=== PATIENT | male | born 1970 | race Caucasian/White ===

== ENCOUNTER 2021-04-14 23:33 | Emergency (ER) | payer SELFPAY ==
[2021-04-14 23:33] VITALS: BP 200/115; PULSE 91; RESP 16; TEMP 36.4; O2SAT 96; BMI 33.0
--- NOTE | 2021-04-14 23:50 | EDS_ITS ---
HPI History of Present Illness Chief Complaint: Dental Detail of Chief Complaint: Patient has left maxillary and mandibular dental pain for over a week. Onset/Context/Timing Onset: Days Timing: Continuous Current Severity: Severe Maximum Severity: Severe Associated Symptoms Associated Symptoms: None Narrative Narrative: Patient was at his dentist a week ago and prescribed amoxicillin and anti-inflammatories. The pain is not improved. He was advised to come to the ED if his pain was not controlled by his prescribed medications. PFSH PFS Medical History Cholecystectomy planned Home Medications amoxicillin 500 mg PO TID 04/14/21 [History Last Taken Unknown] clindamycin HCl 300 mg PO 4X/DAY #80 capsule 04/14/21 [Rx Last Taken Unknown] hydrocodone-acetaminophen 1 tab PO Q6H PRN PRN 3 Days #10 tablet 04/14/21 [Rx Last Taken Unknown] ibuprofen 600 mg PO TID 04/14/21 [History Last Taken Unknown] Allergy/AdvReac Type Severity Reaction Status Date / Time No Known Allergies Allergy Verified 11/28/14 10:17 Social History Smoking Status: Current every day smoker tobacco type: cigarettes ROS ROS ED Constitutional Constitutional ED: Denies chills or fever(s) Eyes Eyes: Denies change in vision ENT ENT ED: Reports sore throat; Denies ear pain or rhinorrhea Cardiovascular Cardiovascular: Denies chest pain Respiratory/Chest Respiratory/Chest: Denies dyspnea Gastrointestinal Gastrointestinal: Denies abdominal pain Genitourinary Genitourinary ED: Denies dysuria Musculoskeletal Musculoskeletal: Denies myalgias or neck pain Integumentary Denies rash Neurologic Neurologic: Denies headache(s), paresthesias or weakness Psychiatric Psychiatric: Denies depression Endocrine Endocrinology: Denies polyuria EXAM Physical Exam Const Vital Signs: 04/14/21 23:33 Temperature 97.6 F L Temperature Source Temporal Pulse Rate 91 Respiratory Rate 16 Blood Pressure 200/115 H Blood Pressure Mean 143 Pulse Ox 96 Oxygen Delivery Method Room Air Positive well nourished and well developed General Appearance ED: well developed HEENT Reports moist mucous membranes; Denies dry mucous membranes HEENT Narrative: Focal decay left maxillary molars and mandibular molars. No abscess. No trismus. No tongue elevation. Airway intact. Negative for trauma or tenderness Mouth ED: No dry mucous membranes Mouth: No dry mucous membranes Eyes EOMs intact bilaterally Neck no lymphadenopathy and supple Resp normal respiratory effort Neuro oriented x3 and CN's II-XII intact bilaterally Sensorium / Orientation: alert Skin no rashes or lesions noted, no wounds and skin turgor normal MDM MDM MDM Narrative Medical decision making narrative: Patient has dental pain that was not controlled my amoxicillin and anti-inflammatories. He has no active controlled prescriptions. He was given a short course of [place] and he was prescribed clindamycin. Call your dentist in the morning. Discharge Plan Triage Chief Complaint: Dental ED Provider: Chuck Peacock Dx/Rx/DC Orders Clinical Impression: Pain, dental Instructions: ED Dental Pain Prescriptions: New hydrocodone-acetaminophen 5-325 mg tablet 1 tab PO Q6H PRN PRN (Reason: Pain) 3 Days Qty: 10 RF: 0 clindamycin HCl 150 mg capsule 300 mg PO 4X/DAY Qty: 80 RF: 0 No Action amoxicillin 500 mg capsule 500 mg PO TID RF: 0 ibuprofen 600 mg tablet 600 mg PO TID RF: 0 Primary Care Provider: Oscar Cardona Chi Referrals: Oscar Cardona Chi, MD [Primary Care Provider] - Activity Restrictions/Additional Instructions: follow up with your dentist Disposition Disposition: Home, self care
[2021-04-15] MEDS: HYDROcodone Bitartrate/Apap 5/325 Tablet PO (00:14)
[2021-04-15] MEDS: Clindamycin HCl 150 MG Capsule 450 MG PO (00:14)
== END 2021-04-15 00:19 | disposition home or self-care (01) ==
LOC: ED 04-15 00:06
PROVIDERS: Emergency Provider Emergency Medicine
DX: K08.89 Other specified disorders of teeth and supporting structures (principal); F17.210 Nicotine dependence, cigarettes, uncomplicated
CPT/HCPCS: 99283

== ENCOUNTER 2023-02-04 03:06 | Emergency (ER) | payer MEDICAID, SELFPAY ==
[2023-02-04 03:08] VITALS: BP 175/86; PULSE 92; RESP 15; TEMP 36.6; O2SAT 95; BMI 34.6
--- NOTE | 2023-02-04 03:59 | EDS_ITS ---
HPI History of Present Illness Chief Complaint: Rash Narrative Narrative: 52-year-old male presenting with rash on the right arm and the right side of his chest. He states he was out in the son about a week ago. He noticed a rash on the right forearm initially which is spread up his right arm. It is itchy in nature. Its been weeping. He is concerned it could be poison kasandra/poison sumac/poison oak. PFSH PFS Medical History Cholecystectomy planned Home Medications prednisone 10 mg tablet 10 mg PO DAILY #63 tabs 02/04/23 [Rx Last Taken Unknown] Allergy/AdvReac Type Severity Reaction Status Date / Time No Known Allergies Allergy Verified 02/04/23 03:09 Social History Smoking Status: Current every day smoker tobacco type: cigarettes ROS ROS ED Constitutional Constitutional ED: Denies chills, fever(s) or sweats Eyes Eyes: Denies blurry vision or change in vision ENT ENT ED: Denies ear pain or sore throat Cardiovascular Cardiovascular: Denies chest pain, palpitations or racing heartbeat Respiratory/Chest Respiratory/Chest: Denies cough, dyspnea or sputum Gastrointestinal Gastrointestinal: Denies abdominal pain, constipation, diarrhea, nausea or vomiting Genitourinary Genitourinary ED: Denies dysuria, hematuria or urinary frequency Musculoskeletal Musculoskeletal: Denies arthralgias, myalgias or neck pain Integumentary Reports rash; Denies abscess or Abrasions Neurologic Neurologic: Denies headache(s), paresthesias or weakness Psychiatric Psychiatric: Denies anxiety, depression, suicidal ideation or suicidal thoughts Endocrine Endocrinology: Denies polydipsia or polyuria EXAM Physical Exam Const Vital Signs: 02/04/23 03:08 Temperature 97.8 F Temperature Source Oral Pulse Rate 92 Respiratory Rate 15 Blood Pressure 175/86 H Blood Pressure Mean 115 Pulse Ox 95 Oxygen Delivery Method Room Air Positive well nourished Eyes PERRL and EOMs intact bilaterally Resp normal respiratory effort Cardio regular rate and regular rhythm Neuro oriented x3 and CN's II-XII intact bilaterally Psych mental status grossly normal Skin Skin Narrative: Weeping maculopapular rash on the right arm and right side of the chest wall. MDM MDM MDM Narrative Medical decision making narrative: Patient presenting with poison kasandra dermatitis versus poison oak or sumac. Patient started on prednisone in the ED. He will be given a extended taper for home. He is counseled on wound care. Follow-up with primary care to ensure resolution. Return precautions discussed. Impression: 1. Poison kasandra Discharge Plan Triage Chief Complaint: Rash ED Provider: Jin Grullon Dx/Rx/DC Orders Instructions: ED Poison Kasandra or Poison [place] Rash Prescriptions: New prednisone 10 mg tablet 10 mg PO DAILY Qty: 63 0RF Rx Instructions: 60 mg p.o. daily ?3 days, 50 mg p.o. daily ?3 days, 40 mg p.o. daily ?3 days, 30 mg p.o. daily ?3 days, 20 mg p.o. daily ?3 days, 10 mg p.o. daily ?3 days. Primary Care Provider: Care Physician,No Primary Referrals: Yodit Oglesby [facility] [Provider Group] - 3-5 Days Care Physician,No Primary [Primary Care Provider] - Disposition Disposition: Home, Self Care
[2023-02-04] MEDS: predniSONE 20 MG Tablet 60 MG PO (04:01)
== END 2023-02-04 04:07 | disposition home or self-care (01) ==
LOC: ED 04:01
PROVIDERS: Emergency Provider Student in an Organized Health Care Education/Training Program; Visit Provider Student in an Organized Health Care Education/Training Program
DX: L25.5 Unspecified contact dermatitis due to plants, except food (principal); F17.210 Nicotine dependence, cigarettes, uncomplicated
CPT/HCPCS: 99282

== ENCOUNTER 2023-08-10 00:43 | Emergency (ER) | payer MEDICAID, SELFPAY ==
[2023-08-10 00:44] VITALS: BP 198/108; PULSE 90; RESP 16; TEMP 36.6; O2SAT 96; BMI 34.9
--- NOTE | 2023-08-10 00:51 | CT_ITS ---
INDICATION: neck swelling, dental pain EXAMINATION: CT NECK WITH CONTRAST - CT Soft Tissue Neck W/ Contrast Injection TECHNIQUE: Helically acquired images were obtained of the neck following IV contrast. A radiation dose optimization technique was used for this scan. IV Contrast dosage and agent: 100 mL of Isovue-370 RADIATION DOSAGE (If Supplied By Facility): CTDIvol = ( 18.40 ) mGy, DLP = ( 579.26 ) mGycm COMPARISON: No relevant prior comparison study available FINDINGS: NASOPHARYNX: Unremarkable. SUPRAHYOID NECK: Unremarkable oropharynx, oral cavity, parapharyngeal space, and retropharyngeal space. Inflammation seen in the submandibular/sublingual region, left greater than right. Mild thickening of the left aspect of the platysma. No fluid collection. Small lymph nodes are present. INFRAHYOID NECK: Unremarkable larynx, hypopharynx, and supraglottis. THYROID: No focal lesions. SALIVARY GLANDS: Unremarkable. LYMPH NODES: No pathologically enlarged lymph nodes are seen. VASCULAR STRUCTURES: Unremarkable. VISUALIZED PORTIONS OF THE ORBITS, PARANASAL SINUSES, MASTOID AIR CELLS AND SKULL BASE: Unremarkable. ORAL CAVITY: No periapical lucency identified. Multiple dental caries are present. BONES: No acute or suspicious osseous abnormality. Moderate degenerative change throughout the cervical spine. THORACIC INLET: Clear lung apices. CT/Soft Tissue Neck WITH Contrast IMPRESSION: Mild inflammation in the submandibular/sublingual region, left greater than right. No fluid collection. No periapical lucencies. Multiple dental caries. Electronically Signed: Sanya Lay MD at 1:55 EDT ,
[2023-08-10] MEDS: Piperacil/Tazobactam 4.5 GM in 0.9% Normal Saline (100mL MB+) 100 ML IV (01:16)
[2023-08-10 01:23] LABS: Absolute Lymphocyte Count 1.82 X10^3/uL (0.83-4.51); Absolute Neutrophil Count 9.5 X10^3/uL (2.0-7.7); Basophil# 0.03 X10^3/uL; Basophil% 0.2 % (0-1); Eosinophil# 0.06 X10^3/uL; Eosinophils% 0.5 % (0-5); Hematocrit 45.9 % (40-54); Hemoglobin 15.5 g/dL (13.0-16.5); Lymphocyte # 1.82 X10^3/ul (0.83-4.51); Lymphocyte % 14.1 % (19-41); Mean Corp Hgb Conc 33.8 g/dL (32-36); Mean Corpuscular Hgb 31.4 pg (27.0-32.0); Mean Corpuscular Volume 93.1 fL (80-94); Mean Platelet Vol. 8.3 fl (6.2-12.0); Monocyte% 11.6 % (0-10); NRBC Flagged by Analyzer 0 % (0-5); Neutrophil # 9.47 X10^3/uL (2.7-7.7); Neutrophil % 73.2 % (47-70); Platelet Count 215 K/mm3 (150-450); RBC Distribution Width CV 13.1 % (11.6-14.6); RBC Distribution Width SD 44.5 fl (35.1-43.9); Red Blood Count 4.93 M/mm3 (4.6-6.2); White Blood Count 12.9 K/mm3 (4.4-11.0)
--- NOTE | 2023-08-10 02:14 | EDS_ITS ---
HPI History of Present Illness Chief Complaint: Dental Detail of Chief Complaint: Dental pain and facial swelling Informant: patient Narrative Narrative: Patient presents to the emergency department complaint of tooth pain that started 3 days ago left lower jaw. Over the last couple days has had increased swelling to his neck and floor of the mouth. He denies fevers or chills or sweats. He denies difficulty swallowing. Patient tells me he has no medical history. PFSH PFS Medical History Cholecystectomy planned Home Medications NK 08/10/23 [History Last Taken Unknown] Allergy/AdvReac Type Severity Reaction Status Date / Time No Known Allergies Allergy Verified 02/04/23 03:09 Social History Smoking Status: Current every day smoker tobacco type: cigarettes ROS ROS ED Review of Systems ROS Unobtainable: other Constitutional Constitutional ED: Reports lethargy; Denies chills, fever(s), sweats or weight loss Eyes Eyes: Denies blurry vision, change in vision or diplopia ENT ENT ED: Reports sore throat and other Details: Dental pain ; Denies rhinorrhea Cardiovascular Cardiovascular: Denies chest pain, orthopnea or racing heartbeat Respiratory/Chest Respiratory/Chest: Denies cough, dyspnea, dyspnea on exertion, orthopnea or sputum Gastrointestinal Gastrointestinal: Denies abdominal pain, diarrhea, nausea or vomiting Genitourinary Genitourinary ED: Denies dysuria, hematuria or urinary frequency Musculoskeletal Musculoskeletal: Denies arthralgias, back pain, myalgias or neck pain Integumentary Denies abscess, Abrasions or rash Neurologic Neurologic: Denies headache(s) or weakness Psychiatric Psychiatric: Denies anxiety, depression or suicidal thoughts Endocrine Endocrinology: Denies polydipsia, polyphagia or polyuria Hematologic/Lymphatic Hematologic/Lymphatic: Denies easy bleeding, easy bruising or lymphadenopathy Allergic/Immunologic Allergic/Immunologic ED: Denies mouth swelling, tongue swelling or urticaria EXAM Physical Exam Const Vital Signs: 08/10/23 00:44 08/10/23 04:00 08/10/23 03:00 Temperature 97.9 F Temperature Source Temporal Pulse Rate 90 83 81 Respiratory Rate 16 17 19 H Blood Pressure 198/108 H 189/105 H Blood Pressure Mean 138 133 Pulse Ox 96 96 95 Oxygen Delivery Method Room Air Room Air Room Air Positive well nourished and well developed General Appearance ED: well developed and NAD HEENT Reports TM's clear and moist mucous membranes HEENT Narrative: Patient has diffuse swelling to the floor of the mouth. Patient has tenderness along the left lower gingiva diffusely without any abscess noted or fluctuance. Multiple caries teeth. Patient has submental swelling and tenderness with some faint erythema. Uvula midline with no trismus. normocephalic and atraumatic; Negative for trauma or tenderness Tympanic Membrane ED: Yes TM's clear Eyes PERRL and EOMs intact bilaterally General Eye ED: Negative for pale conjunctiva or scleral icterus Neck no lymphadenopathy, supple and no JVD General: Negative for tenderness Chest Wall inspection of chest normal and palpation of chest normal Chest: Negative for tenderness Resp normal respiratory effort and clear to auscultation bilaterally Effort and Inspection: Negative for respiratory distress or pain with movement Auscultation: Negative for rhonchi, wheezes or diminished lung sounds Cardio regular rate, regular rhythm, S1 normal heart sound, S2 normal heart sound and no murmurs Peripheral Pulses: pulses 2+ throughout GI normal to inspection, nondistended, normoactive bowel sounds, soft to palpation, non-tender, non-distended and no masses Back/Spine no CVA tenderness and no thoracic nor lumbar tenderness Extremity normal to inspection General Extremety ED: Negative for edema General Extremity: Negative for edema Neuro oriented x3, CN's II-XII intact bilaterally, no sensory deficits noted and gait normal Sensorium / Orientation: awake, alert, oriented to person, oriented to place and oriented to time Motor Exam: strength 5/5 throughout and strength abnormal Psych mental status grossly normal Skin no rashes or lesions noted and no wounds MDM MDM MDM Narrative Medical decision making narrative: Patient presents with dental pain and mandible and submental swelling with concern for Cady's angina. IV line established. Patient was started on Zosyn IV. CBC with differential obtained showed an elevated white count of 12.9. CT scan with IV contrast of soft tissue neck obtained showed soft tissue swelling and inflammation without evidence of fluid collection or drainable abscess. CBC with differential obtained showed a white count 12.9 with hemoglobin of 15 and platelet count of 215. Chemistries unremarkable. Lactate was normal at 1.2. Discussed case with our hospitalist who asked that I discussed with oral maxillofacial surgeon if available. I attempted multiple times to contact Dr. Gu unsuccessfully. I was then asked to transfer patient to facility that would have oral maxillofacial availability. We attempted multiple hospitals including [facility] in [facility] as well as [facility] and there were no beds available at these facilities. We contacted [facility] in [place] who I was told had bed availability and discussed case with Dr. Lomas who accepted transfer of patient to their facility. Patient reassessment at 5:30 AM. Patient resting comfortably. He has no respiratory distress. Awaiting bed at [facility]. Lab Data Attestation: I reviewed the patient's lab results. Labs: Laboratory Results - last 24 hr 08/10/23 01:15 WBC 12.9 H RBC 4.93 Hgb 15.5 Hct 45.9 MCV 93.1 MCH 31.4 MCHC 33.8 RDW Std Deviation 44.5 H RDW Coeff of Tony 13.1 Plt Count 215 MPV 8.3 Immature Gran % (Auto) 0.400 Neut % (Auto) 73.2 H Lymph % (Auto) 14.1 L [place] % (Auto) 11.6 H Eos % (Auto) 0.5 Baso % (Auto) 0.2 Absolute Neuts (auto) 9.5 H Absolute Lymphs (auto) 1.82 Nucleated RBC % 0 Sodium 141 Potassium 3.7 Chloride 108 H Carbon Dioxide 27.0 Anion Gap 6 BUN 13 Creatinine 1.29 Estim Creat Clear Calc 72.69 Est GFR (MDRD) Af Amer 75 Est GFR (MDRD) Non-Af 62 BUN/Creatinine Ratio 10.1 Glucose 131 H Lactic Acid 1.2 Calcium 8.6 Radiography Diagnostic Testing: Clinical Impression(s) from Imaging Studies Soft Tissue Neck CT 08/10/23 00:51 IMPRESSION: Mild inflammation in the submandibular/sublingual region, left greater than right. No fluid collection. No periapical lucencies. Multiple dental caries. Electronically Signed: Sanya Lay MD at 1:55 EDT , Discharge Plan Triage Chief Complaint: Dental ED Provider: Ungur,Remus Dx/Rx/DC Orders Clinical Impression: Pain, dental, Angina, Jose Prescriptions: No Action NK Primary Care Provider: Care Physician,No Primary Referrals: Care Physician,No Primary [Primary Care Provider] - Disposition Disposition: DC/Tx to Another Type of HCF
[2023-08-10 02:32] LABS: Lactic Acid 1.2 mmol/L (0.4-1.9)
--- NOTE | 2023-08-10 02:38 | PCM.HP.STD ---
HPI - General HPI Narrative PATSY WILSON, is a 53 M who presents [facility] Medical History Cholecystectomy planned Home Medications prednisone 10 mg tablet 10 mg PO DAILY #63 tabs 02/04/23 [Rx Last Taken Unknown] Allergy/AdvReac Type Severity Reaction Status Date / Time No Known Allergies Allergy Verified 02/04/23 03:09 Social History Smoking Status: Current every day smoker tobacco type: cigarettes Vital Signs Vital Signs Vital Signs: 08/10/23 00:44 Temperature 97.9 F Temperature Source Temporal Pulse Rate 90 Respiratory Rate 16 Blood Pressure 198/108 H Blood Pressure Mean 138 Pulse Ox 96 Oxygen Delivery Method Room Air Weight Weight: 117.027 kg Body Mass Index (BMI) 34.9 Results Lab / Micro Data 08/10/23 01:15 08/10/23 01:15 Labs: Laboratory Results - last 24 hr 08/10/23 01:15: WBC 12.9 H, RBC 4.93, Hgb 15.5, Hct 45.9, MCV 93.1, MCH 31.4, MCHC 33.8, RDW Std Deviation 44.5 H, RDW Coeff of Tony 13.1, Plt Count 215, MPV 8.3, Immature Gran % (Auto) 0.400, Neut % (Auto) 73.2 H, Lymph % (Auto) 14.1 L, [place] % (Auto) 11.6 H, Eos % (Auto) 0.5, Baso % (Auto) 0.2, Absolute Neuts (auto) 9.5 H, Absolute Lymphs (auto) 1.82, Nucleated RBC % 0, Lactic Acid 1.2 Radiology Impression Soft Tissue Neck CT 08/10/23 00:51 IMPRESSION: Mild inflammation in the submandibular/sublingual region, left greater than right. No fluid collection. No periapical lucencies. Multiple dental caries. Electronically Signed: Sanya Lay MD at 1:55 EDT Reading Location ID and State: [facility] / [place] Tel , Service support ,
[2023-08-10 02:51] LABS: BUN 13 mg/dL (7-18); Glucose 131 mg/dL (74-106)
[2023-08-10 02:52] LABS: Anion Gap 6 (5-15); BUN/Creat Ratio 10.1 RATIO (10-20); Calcium,Total 8.6 mg/dL (8.5-10.1); Chloride 108 mmol/L (98-107); Creatinine, Serum 1.29 mg/dL (0.70-1.30); EST Glomerular Filtration Rate 62 mL/min (>60); Est Glom Filt Rate - Afr Amer 75 mL/min (>60); Estimated Creatinine Clearance 72.69 ml/min; Potassium 3.7 mmol/L (3.5-5.1); Sodium Level 141 mmol/L (136-145)
[2023-08-10 03:00] VITALS: PULSE 81; RESP 19; O2SAT 95
[2023-08-10 04:00] VITALS: BP 189/105; PULSE 83; RESP 17; O2SAT 96
[2023-08-10 05:00] VITALS: BP 177/76; PULSE 75; RESP 16; O2SAT 97
[2023-08-10 06:00] VITALS: BP 178/78; PULSE 80; RESP 16; O2SAT 95
[2023-08-10 06:55] VITALS: BP 178/75; PULSE 80; RESP 19; O2SAT 95
== END 2023-08-10 08:49 | disposition other institution (70) ==
PROVIDERS: Emergency Provider Emergency Medicine; Visit Provider Emergency Medicine
DX: K12.2 Cellulitis and abscess of mouth (principal); K08.89 Other specified disorders of teeth and supporting structures; F17.210 Nicotine dependence, cigarettes, uncomplicated
CPT/HCPCS: 70491; 80048; 83605; 85025; 96365; 99284; Q9967; A4216

== ENCOUNTER 2024-10-01 23:12 | Emergency (ER) | payer SELFPAY ==
[2024-10-01 23:12] VITALS: BP 191/105; PULSE 88; RESP 17; TEMP 36.8; O2SAT 98; BMI 33.7
--- NOTE | 2024-10-01 23:37 | EX.ED.DYSGE1 ---
HPI History of Present Illness Chief Complaint: Edema Informant: patient Narrative Narrative: Patient is a 54-year-old male who does not follow with a family doctor and states he has no medical history. He reports that he was working on his car yesterday and noticed afterwards that he was having some irritation and itching around his eyes. He states that today the redness and swelling progressed around the eyes and also moved to his forehead nose chin and cheeks. He states he noticed some irritation across his neck and arms as well. He denies any difficulty breathing or swallowing. He denies any known new exposure. He states no one else at home has the rash. However as his symptoms have worsened he presents for evaluation. [facility] Medical History Cholecystectomy planned Home Medications ?Medication ?Instructions ?Recorded ?Last Taken ?Type multivitamin (Daily Multi-Vitamin 1 tab PO DAILY 10/01/24 Unknown History tablet) omega 3-rfw-doa-fish oil 60 mg-90 1 cap PO DAILY 10/01/24 Unknown History mg-500 mg capsule (Fish Oil) prednisone 10 mg tablet 10 mg PO DAILY #48 TABLETS 10/01/24 Unknown Rx sildenafil 50 mg tablet (Viagra) 50 mg PO DAILY PRN sexual activity 10/01/24 Unknown Rx #14 tabs Allergy/AdvReac Type Severity Reaction Status Date / Time No Known Allergies Allergy Verified 10/01/24 23:13 Social History Smoking Status: Current every day smoker tobacco type: cigarettes ROS ROS ED Constitutional Constitutional ED: Denies chills or fever(s) Eyes Eyes: Denies blurry vision, change in vision or diplopia ENT ENT ED: Denies sore throat Cardiovascular Cardiovascular: Denies chest pain Respiratory/Chest Respiratory/Chest: Denies cough or dyspnea Gastrointestinal Gastrointestinal: Denies abdominal pain, diarrhea, nausea or vomiting Genitourinary Genitourinary ED: Denies dysuria Musculoskeletal Musculoskeletal: Denies myalgias Integumentary Reports rash Neurologic Neurologic: Denies headache(s) Hematologic/Lymphatic Hematologic/Lymphatic: Denies easy bleeding or easy bruising Allergic/Immunologic Allergic/Immunologic ED: Denies mouth swelling or tongue swelling EXAM Physical Exam Const Vital Signs: 10/01/24 23:12 10/01/24 23:47 Temperature 98.3 F Temperature Source Oral Pulse Rate 88 73 Respiratory Rate 17 18 Blood Pressure 191/105 H Blood Pressure Mean 133 Pulse Ox 98 94 Oxygen Delivery Method Room Air Positive well nourished, well developed and obese General Appearance ED: well developed Nutritional Appearance: obese HEENT HEENT Narrative: No tongue or lip swelling no oral lesions no airway edema or compromise Patient does have erythema across the forehead nose chin and cheeks with erythema and allergic shiners around the bilateral orbits consistent with allergic reaction Eyes PERRL and EOMs intact bilaterally General Eye ED: Negative for scleral icterus Neck supple Resp normal respiratory effort and clear to auscultation bilaterally Cardio regular rate and regular rhythm Extremity normal to inspection Neuro oriented x3, CN's II-XII intact bilaterally and no sensory deficits noted Sensorium / Orientation: alert Motor Exam: strength 5/5 throughout Psych mental status grossly normal Skin Skin Narrative: Erythema/rash across the face as documented above with slight extension into the neck and the bilateral antecubital spaces. No involvement of the palms or soles. MDM MDM MDM Narrative Medical decision making narrative: Patient presented to the ER hypertensive but otherwise with stable vitals. He reported no known exposures in the last 24 hours but was working on his car and he states there was multiple chemicals he could have come in contact with although he states they are not new. His history and exam is most consistent with contact dermatitis as it is delayed hypersensitivity reaction and symptoms started yesterday and worsened throughout the day. His exam does not suggest an infectious process such as cellulitis or abscess or shingles. He does not have angioedema or airway compromise/respiratory distress. I discussed with patient I feel he would benefit from IV Solu-Medrol Benadryl and Pepcid. Patient states he does not want to stay in the hospital and would prefer oral medication. Therefore he was given these medications by mouth and prednisone taper was prescribed for home. Of note the patient did admit that he has difficulty with erectile dysfunction but does not have a family doctor and was requesting Viagra. Secondary to this I will provide a short course but informed him he will need to follow-up with a family doctor if he wants to continue any type of outpatient therapy for this History & Record Review Discussion w/independent historian: Patient Discharge Plan Triage Chief Complaint: Edema ED Provider: Jhonny Landeros Dx/Rx/DC Orders Clinical Impression: Allergic reaction, Hypertension, Erectile dysfunction Instructions: ED General Allergic Reactions Prescriptions: New prednisone 10 mg tablet 10 mg PO DAILY Qty: 48 0RF Rx Instructions: 6 po qd x 3 days, 4 po qd x 3 days, 2 po qd x 3 days, 1 po qd x 3 days sildenafil [Viagra] 50 mg tablet 50 mg PO DAILY PRN (Reason: sexual activity) Qty: 14 0RF Rx Instructions: administer 30 minutes to 4 hours before activity No Action multivitamin [Daily Multi-Vitamin] Tablet 1 tab PO DAILY omega 2-eah-ips-fish oil [Fish Oil] 60-90-500 mg capsule 1 cap PO DAILY Primary Care Provider: Care Physician,No Primary Referrals: Edil Whitley MD [Med Staff - Active Staff] - Care Physician,No Primary [Primary Care Provider] - Activity Restrictions/Additional Instructions: Please take the prednisone as directed to resolve your allergic reaction. If you develop difficulty breathing or swallowing or have any further concerns please return to the hospital for repeat evaluation Print Language: Polish Disposition Disposition: Home, Self Care Discharge Date/Time: 10/01/24 23:47
[2024-10-01] MEDS: Famotidine 20 MG Tablet 40 MG PO (23:46)
[2024-10-01] MEDS: predniSONE 20 MG Tablet 60 MG PO (23:46)
[2024-10-01] MEDS: DiphenhydrAMINE 25 MG Capsule 50 MG PO (23:46)
[2024-10-01 23:47] VITALS: PULSE 73; RESP 18; O2SAT 94
== END 2024-10-01 23:47 | disposition home or self-care (01) ==
LOC: ED 23:46
PROVIDERS: Emergency Provider Emergency Medicine; Visit Provider Emergency Medicine
DX: T78.40XA Allergy, unspecified, initial encounter (principal); I10 Essential (primary) hypertension; E66.9 Obesity, unspecified; N52.9 Male erectile dysfunction, unspecified; F17.210 Nicotine dependence, cigarettes, uncomplicated
CPT/HCPCS: 99283

== ENCOUNTER → 2024-10-02 | Outpatient (CLI) | payer SELFPAY ==
--- NOTE | 2024-10-02 18:50 | RAD_ITS ---
EXAM: XR CERVICAL SPINE, 4 OR 5 VIEWS CLINICAL INDICATION: M54.2 pain. Status post fall. TECHNIQUE: Frontal, lateral and bilateral oblique views of the cervical spine. COMPARISON: CT neck, 08/10/2023 FINDINGS: VERTEBRAE: Straightening of expected cervical lordosis may be in part positional or secondary to spasm. Multilevel facet, uncovertebral joint, and endplate osteophytosis. Preserved vertebral body height. No acute fracture. No spondylolisthesis. DISC SPACES: Multilevel intervertebral disc height loss. Osseous encroachment of multiple neural foramina resulting in multilevel stenosis. SOFT TISSUES: No significant abnormality. No prevertebral soft tissue widening. VASCULATURE: Vascular calcifications. LUNG APICES: Clear. RAD/Cerv Spine 4 or 5 Views IMPRESSION: 1. Straightening of expected cervical lordosis may be in part positional or secondary to spasm. 2. Degenerative changes. No definite acute osseous abnormality. Findings correlate with the prior CT. Electronically Signed: Samy Small DO at 20:28 EST ,
== END | disposition home or self-care (01) ==
PROVIDERS: Visit Provider Chiropractor
DX: M54.2 Cervicalgia (principal)
CPT/HCPCS: 72050

== ENCOUNTER 2025-04-15 11:51 | Emergency (ER) | payer MEDICAID, SELFPAY ==
[2025-04-15 11:51] VITALS: BP 182/103; PULSE 85; RESP 16; TEMP 35.6; O2SAT 96; BMI 32.6
--- NOTE | 2025-04-15 12:12 | EDS_ITS ---
HPI History of Present Illness Chief Complaint: Dental Detail of Chief Complaint: Dental pain tooth #27 and possibly 28 Informant: patient Onset/Context/Timing Onset: Yesterday Context: Sudden Onset Timing: Continuous Quality: Pain Location: Tooth #2728 Current Severity: Mild (Here after he put garlic in his mouth) Maximum Severity: Moderate Worsened by: Air Associated Symptoms Assocated Symptom - Dental: Negative for fever, jaw swelling, face swelling, cold sensitivity or hot sensitivity Narrative Narrative: Patient is a 55-year-old male who presents with abrupt onset of dental pain. He believes he broke tooth #27 and possibly 28. He has severe pain. He has no medical problems. 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 He does not have a primary care physician. He is a smoker. He denies fever, chills night sweats. He denies change in voice or difficulty swallowing. He denies history of medic fever, heart murmur, SBE or being immune suppressed. Prior similar symptoms: No Recent Illness/Hospitalization: No PFSH PFSH Medical History Cholecystectomy planned Home Medications ?Medication ?Instructions ?Recorded ?Last Taken ?Type multivitamin (Daily Multi-Vitamin 1 tab PO DAILY 10/01 Unknown History tablet) omega 0-scf-kbr-fish oil 60 mg-90 1 cap PO DAILY 10/01 Unknown History mg-500 mg capsule (Fish Oil) prednisone 10 mg tablet 10 mg PO DAILY #48 TABLETS 1 12/02/23 Unknown Rx sildenafil 50 mg tablet (Viagra) 50 mg PO DAILY PRN se xual activity 10/01/24 Unknown Rx #14 tabs hydrocodone-acetaminophen 5-325mg 1 tab PO Q6H PRN PRN Pain 3 days 04/15/25 Unknown Rx 5mg-325mg #10 TABLETS Allergy/AdvReac Type Severity Reaction Status Date / Time No Known Allergies Allergy Verified 04/15/25 11:51 Social History Smoking Status: Current every day smoker tobacco type: cigarettes ROS ROS ED Constitutional Constitutional ED: Denies chills, fever(s), subjective or sweats Eyes Eyes: Denies blurry vision or change in vision ENT ENT ED: Reports other Details: HPI narrative ; Denies ear pain, rhinorrhea or sore throat Cardiovascular Cardiovascular: Denies chest pain or palpitations Respiratory/Chest Respiratory/Chest: Denies cough or dyspnea Gastrointestinal Gastrointestinal: Denies nausea or vomiting EXAM Physical Exam Const Vital Signs: 04/15/25 11:51 Temperature 96.1 F L Temperature Source Temporal Pulse Rate 85 Respiratory Rate 16 Blood Pressure 182/103 H Blood Pressure Mean 129 Pulse Ox 96 Oxygen Delivery Method Room Air Positive well nourished and well developed Constitutional Narrative: BMI is 32.7 General Appearance ED: well developed HEENT Reports TM's clear HEENT Narrative: There is no trismus. Negative for trauma or tenderness Face and Sinus: sinuses nontender Tympanic Membrane ED: Yes TM's clear Mouth ED: Yes lips normal, Yes tongue normal, Yes salivary gland normal, No mouth trauma and Yes oral and palatal mucosa abnormal Mouth: lips normal, tongue normal, salivary gland normal, No mouth trauma and oral and palatal mucosa abnormal Teeth and Gingiva: abnormal tooth and associated gingiva, gingiva abnormal, poor dentition and teeth discoloration Throat: posterior oropharynx normal Eyes PERRL and EOMs intact bilaterally Neck no lymphadenopathy, supple and no JVD Resp normal respiratory effort, no retractions and clear to auscultation bilaterally Cardio regular rate, regular rhythm, S1 normal heart sound, S2 normal heart sound and no murmurs Neuro oriented x3 and CN's II-XII intact bilaterally Sensorium / Orientation: alert Psych mental status grossly normal Skin no rashes or lesions noted MDM MDM MDM Narrative Medical decision making narrative: Patient with elevated blood pressure most likely due to pain since his most recent physical revealed no abnormality. Patient was treated with oral opiate analgesia and NSAIDs. He states his will drive him home. He needs dental x-rays which we do not have capability of performing. He does not have a dentist. He was referred to dentist and given the dental sheet. Also recommend that he follow-up at the [facility] to have blood pressure rechecked in 1 week. This was not treated because he had a normal blood pressure recently and has no history of any medical problems. Furthermore, he is asymptomatic. Discharge Plan Triage Chief Complaint: Dental ED Provider: Porfirio Perez Dx/Rx/DC Orders Clinical Impression: Pain, dental, Gingivitis, Periodontitis, Elevated blood-pressure reading without diagnosis of hypertension Instructions: ED Dental Pain, ED Hypertension, To Be Confirmed Prescriptions: New hydrocodone-acetaminophen 5-325 mg tablet 1 tab PO Q6H PRN PRN (Reason: Pain) 3 Days Qty: 10 0RF No Action multivitamin [Daily Multi-Vitamin] Tablet 1 tab PO DAILY omega 1-vxr-wdx-fish oil [Fish Oil] 60-90-500 mg capsule 1 cap PO DAILY prednisone 10 mg tablet 10 mg PO DAILY Qty: 48 0RF Rx Instructions: 6 po qd x 3 days, 4 po qd x 3 days, 2 po qd x 3 days, 1 po qd x 3 days sildenafil [Viagra] 50 mg tablet 50 mg PO DAILY PRN (Reason: sexual activity) Qty: 14 0RF Rx Instructions: administer 30 minutes to 4 hours before activity Primary Care Provider: Care Physician,No Primary Referrals: Yodit Oglesby [facility] [Provider Group] - 1-2 Weeks Care Physician,No Primary [Primary Care Provider] - Print Language: Kiswahili Disposition Disposition: Home, Self Care
--- OUTSIDE RECORDS SUMMARY | 2025-04-15 12:24 | XMS RPT_ITS | CCD ---
Author Organization [facility] Care Team Providers Care Chemical Dependency Nurse Name Role Phone KEVIN GAMBOA Admitting Unavailable KEVIN GAMBOA Attending Unavailable KEVIN GAMBOA Consulting Unavailable BRYANNA SAHU Admitting Unavailable BRYANNA SAHU Attending Unavailable NONE, NONE Primary Care Unavailable Saji Turner [phone] Consulting Unavailable NONE, NONE Consulting Unavailable BRYANNA SAHU Consulting Unavailable Bryanna Sahu Attending Unavailable Care Physician, No Primary Primary Care Unava ilable Jhonny Landeros Attending Unavailable Care Physician, No Primary Primary Care Unava ilable Medications Current Medications Medication Drug Class(es) Dates Sig (Normalized) Sig (Original) [place] (Nk) (1 source) Start: 08-10-2023 [place] (Nk) A ctive August 10, 2023 12:00am Completed/Discontinued Medications Medication Drug Class(es) Dates Sig (Normalized) Sig (Original) predniSONE 10 mg oral tablet (2 sources) Start: 02-04-2023 End: 08-10-2023 take 60 mg by mouth once daily, then take 50 mg by mouth once daily, then take 40 mg by mouth once daily, then take 30 mg by mouth once daily, then take 20 mg by mouth once daily, then take 10 mg by mouth once daily Prednisone Discontinued 10 MG PO DAILY 63 February 04, 2023 12:00am August 10, 2023 2:49am 60 mg p.o. daily 3 days, 50 mg p.o. daily 3 days, 40 mg p.o. daily 3 days, 30 mg p.o. daily 3 days, 20 mg p.o. daily 3 days, 10 mg p.o. daily 3 days. Problems Problem Classification Problem Date Documented Da te Episodic/Chronic Diseases of mouth; excluding dental (1 source) Jose's angina; Translations: [Cellulitis and abscess of mouth] 08-10-2023 Episodic Disorders of teeth and jaw (3 sources) Toothache; Translations: [Other specified disorders of teeth and supporting structures] 04-14-2021 Episodic Other skin disorders (1 source) Rash and other nonspecific skin eruption; Translations: [Rash and other nonspecific skin eruption] Onset: 11-04-2024 Episodic Residual codes; unclassified (2 sources) Decreased libido; Translations: [DECREASED LIBIDO] Onset: 09-28-2019 Episodic Spondylosis; intervertebral disc disorders; other back problems (3 sources) Cervicalgia; Translations: [CERVICALGIA] Onset: 07-13-2019 Episodic Results Test Name Value Interpretation Reference Range Facility Cerv Spine 4 or 5 Viewson Cerv Spine 4 or 5 Views [facility] Imaging Services [address] [place] [address] [id number] Cerv Spine 4 or 5 Views MR#: [id number] Acct: [id number] Name: PATSY WILSON Rep #: [id number] : 1970 M 54 From: Samy salas DO PCP: Care Physician,No Primary Status: REG CLI Study: Cerv Spine 4 or 5 Views Date of Exam: 10/02/24 Exam# [id number] Ordering Dr: Bryanna Sahu [id number] EXAM: XR CERVICAL SPINE, 4 OR 5 VIEWS CLINICAL INDICATION: M54.2 pain. Status post fall. TECHNIQUE: Frontal, lateral and bilateral oblique views of the cervical spine. COMPARISON: CT neck, 08/10/2023 FINDINGS: VERTEBRAE: Straightening of expected cervical lordosis may be in part positional or secondary to spasm. Multilevel facet, uncovertebral joint, and endplate osteophytosis. Preserved vertebral body height. No acute fracture. No spondylolisthesis. DISC SPACES: Multilevel intervertebral disc height loss. Osseous encroachment of multiple neural foramina resulting in multilevel stenosis. SOFT TISSUES: No significant abnormality. No prevertebral soft tissue widening. VASCULATURE: Vascular calcifications. LUNG APICES: Clear. RAD/Cerv Spine 4 or 5 Views IMPRESSION: 1. Straightening of expected cervical lordosis may be in part positional or secondary to spasm. 2. Degenerative changes. No definite acute osseous abnormality. Findings correlate with the prior CT. Electronically Signed: Samy Small DO at 20:28 EST , CC: JC Sahu; No Primary Care Physician Web Consultant: Signed Normal [facility] Emergency Department Summary on 10-01-2024 Emergency Department Summary [facility] Medical Records Department [address] [place] [address] Emergency Department Summary 10/01/24 MR#: [id number] Acct: [id number] Name: PATSY WILSON Rep #: [id number] : 1970 54 From: Jhonny Landeros DO PCP: Care Physician,No Primary Status:DEP ER Location: ED HPI History of Present Illness Chief Complaint: Edema Informant: patient Narrative Narrative: Patient is a 54-year-old male who does not follow with a family doctor and states he has no medical history. He reports that he was working on his car yesterday and noticed afterwards that he was having some irritation and itching around his eyes. He states that today the redness and swelling progressed around the eyes and also moved to his forehead nose chin and cheeks. He states he noticed some irritation across his neck and arms as well. He denies any difficulty breathing or swallowing. He denies any known new exposure. He states no one else at home has the rash. However as his symptoms have worsened he presents for evaluation. [facility] Medical History Cholecystectomy planned Home Medications ???Medication ???Instructions ???Recorded ???Last Taken ???Type multivitamin (Daily Multi-Vitamin 1 tab PO DAILY 10/01/24 Unknown History tablet) omega 7-mkz-yzo-fish oil 60 mg-90 1 cap PO DAILY 10/01/24 Unknown History mg-500 mg capsule (Fish Oil) prednisone 10 mg tablet 10 mg PO DAILY #48 TABLETS 10/01/24 Unknown Rx sildenafil 50 mg tablet (Viagra) 50 mg PO DAILY PRN sexual activity 10/01/24 Unknown Rx #14 tabs Allergy/AdvReac Type Severity Reaction Status Date / Time No Known Allergies Allergy Verified 10/01/24 23:13 Social History Smoking Status: Current every day smoker tobacco type: cigarettes ROS ROS ED Constitutional Constitutional ED: Denies chills or fever(s) Eyes Eyes: Denies blurry vision, change in vision or diplopia ENT ENT ED: Denies sore throat Cardiovascular Cardiovascular: Denies chest pain Respiratory/Chest Respiratory/Chest: Denies cough or dyspnea Gastrointestinal Gastrointestinal: Denies abdominal pain, diarrhea, nausea or vomiting Genitourinary Genitourinary ED: Denies dysuria Musculoskeletal Musculoskeletal: Denies myalgias Integumentary Reports rash Neurologic Neurologic: Denies headache(s) Hematologic/Lymphatic Hematologic/Lymphatic : Denies easy bleeding or easy bruising Allergic/Immunologic Allergic/Immunologic ED: Denies mouth swelling or tongue swelling EXAM Physical Exam Const Vital Signs: 10/01/24 23:12 10/01/24 23:47 Temperature 98.3 F Temperature Source Oral Pulse Rate 88 73 Respiratory Rate 17 18 Blood Pressure 191/105 H Blood Pressure Mean 133 Pulse Ox 98 94 Oxygen Delivery Method Room Air Positive well nourished, well developed and obese General Appearance ED: well developed Nutritional Appearance: obese HEENT HEENT Narrative: No tongue or lip swelling no oral lesions no airway edema or compromise Patient does have erythema across the forehead nose chin and cheeks with erythema and allergic shiners around the bilateral orbits consistent with allergic reaction Eyes PERRL and EOMs intact bilaterally General Eye ED: Negative for scleral icterus Neck supple Resp normal respiratory effort and clear to auscultation bilaterally Cardio regular rate and regular rhythm Extremity normal to inspection Neuro oriented x3, CN's II-XII intact bilaterally and no sensory deficits noted Sensorium / Orientation: alert Motor Exam: strength 5/5 throughout Psych mental status grossly normal Skin Skin Narrative: Erythema/rash across the face as documented above with slight extension into the neck and the bilateral antecubital spaces. No involvement of the palms or soles. MDM MDM MDM Narrative Medical decision making narrative: Patient presented to the ER hypertensive but otherwise with stable vitals. He reported no known exposures in the last 24 hours but was working on his car and he states there was multiple chemicals he could have come in contact with although he states they are not new. His history and exam is most consistent with contact dermatitis as it is delayed hypersensitivity reaction and symptoms started yesterday and worsened throughout the day. His exam does not suggest an infectious process such as cellulitis or abscess or shingles. He does not have angioedema or airway compromise/respirator y distress. I discussed with patient I feel he would benefit from IV Solu- Medrol Benadryl and Pepcid. Patient states he does not want to stay in the hospital and would prefer oral medication. Therefore he was given these medications by mouth an (more content not included)... Normal [facility] Absolute lymphocyte countOrd ered By: Angela Eduardo on 08-10-2023 Lymphocytes Auto (Unsp spec) [#/Vol] 1.82 10*3/uL 0.83-4.51 [facility] Basophil percentageOrdered B y: Ignacia Eduardo on 08-10-2023 Basophils/100 WBC (Bld) 0.2 % 0-1 [facility] Chloride [Moles/Vol] 108 mmol/L 98-107 [facility] Eosinophils/100 WBC (Bld) 0.5 % 0-5 [facility] Glucose [Mass/Vol] 131 mg/dL 74-106 [facility] Comment on above: Fasting Glucose resu lt greater than or equal to 126 mg/dL suggests DIABETES MELLITUS per A.D.A. criteria. Lactate [Moles/Vol] 1.2 mmol/L 0.4-2.0 [facility] Neutrophils (Bld) [#/Vol] 9.5 10*3/uL 2.0-7.7 [facility] Neutrophils/100 WBC (Bld) 73.2 % 47-70 [facility] Potassium [Moles/Vol] 3.7 mmol/L 3.5-5.1 [facility] Sodium [Moles/Vol] 141 mmol/L 136-145 [facility] WBC (Bld) [#/Vol] 12.9 10*3/uL 4.4-11.0 [facility] Blood erythrocytes count (nu mber/volume)Ordered By: Angela Clark on 08-10-2023 RBC (Bld) [#/Vol] 4.93 10*6/uL 4.6-6.2 [facility] Blood hemoglobin measurement (mass/volume)Ordered By: Angela Clark on 08-10-2023 Hemoglobin (Bld) [Mass/Vol] 15.5 g/dL 13.0-16.5 [facility] Blood lymphocytes/100 leukoc ytesOrdered By: [facility] on 08-10-2023 Lymphocytes/100 WBC (Bld) 14.1 % 19-41 [facility] Blood monocytes/100 leukocyt esOrdered By: Angela Clark on 08-10-2023 Monocytes/100 WBC (Bld) 11.6 % 0-10 [facility] Blood platelet mean volumeOr dered By: Angela Clark on 08-10-2023 Platelet mean volume (Bld) [Entitic vol] 8.3 fL 6.2-12.0 [facility] Determination of erythrocyte mean corpuscular volume (MCV)Ordered By: Angela Clark on 08-10-2023 MCV (RBC) [Entitic vol] 93.1 fL 80-94 [facility] Hematocrit Auto (Bld) [Volum e fraction]Ordered By: Angela Clark on 08-10-2023 Hematocrit (Bld) [Volume fraction] 45.9 % 40-54 [facility] - Chemistry and C hemistry - challengeOrdered By: Angela Clark on 08-10-2023 CO2 [Moles/Vol] 27.0 mmol/L 21.0-32.0 [facility] Urea nitrogen/Creatinine [Mass ratio] 10.1 mg/mg 10-20 [facility] - Hematology and Cell countsOrdered By: Angela Clark on 08-10-2023 Erythrocyte distribution width (RBC) [Entitic vol] 44.5 fL 35.1-43.9 [facility] Erythrocyte distribution width (RBC) [Ratio] 13.1 % 11.6-14.6 [facility] Immature granulocytes/100 WBC (Bld) 0.400 % 0.0-0.9 [facility] Comment on above: IG% - Immature Granu locytes (promyelocytes, myelocytes and metamyelocytes) > 1% indicates that a LEFT SHIFT is Present. MCH (RBC) [Entitic mass] 31.4 pg 27.0-32.0 [facility] Nucleated RBC/100 WBC (Bld) [Ratio] 0 % 0-5 [facility] MCHC Auto (RBC) [Mass/Vol]Or dered By: Angela Clark on 08-10-2023 MCHC (RBC) [Mass/Vol] 33.8 g/dL 32-36 [facility] No Panel InformationOrdered By: Angela Clark on 08-10-2023 Estimated Creatinine Clearance Calc 72.69 ml/min [facility] Estimated GFR (MDRD) Amer 75 mL/min >60 [facility] Estimated GFR (MDRD) Non-Af Amer 62 mL/min >60 [facility] Platelets bldOrdered By: Ignacia Clark on 08-10-2023 Platelets (Bld) [#/Vol] 215 10*3/uL 150-450 [facility] Serum or plasma calcium dorinda urement (mass/volume)Ordered By: Angela Clark on 08-10-2023 Calcium [Mass/Vol] 8.6 mg/dL 8.5-10.1 [facility] Serum or plasma creatinine m easurement (mass/volume)Ordered By: Angela Clark on 08-10-2023 Creatinine [Mass/Vol] 1.29 mg/dL 0.70-1.30 [facility] Comment on above: The validity of the calculated GFR & GFRAA in patients over 70 years has not been determined. Clinical correlation is essential. Serum or plasma urea nitroge n measurement (mass/volume)Ordered By: Angela Clark on 08-10-2023 Urea nitrogen [Mass/Vol] 13 mg/dL 7-18 [facility] Thin prep Papanicolaou smear with manual screeningOrdered By: Angela Clark on 08-10-2023 Thin prep Papanicolaou smear with manual screening 6 5-15 [facility] SPINE, CERVICAL MIN 4 VIEWSo n 03-25-2022 SPINE, CERVICAL MIN 4 VIEWS Patient Name: PATSY WILSON STUDY: SPINE, CERVICAL MIN 4 VIEWS; 03/25/2022 4:16 pm INDICATION: M54.2. COMPARISON: None. ACCESSION NUMBER(S): [id number] ORDERING CLINICIAN: BRYANNA SAHU FINDINGS: C-spine, five views There is severe disc space narrowing with osteophytosis sclerosis in the lower cervical spine worse at C6-7 C7-T1. There is mild neural foramina narrowing in the lower cervical spine as well. No fracture seen. No spondylolisthesis IMPRESSION: Severe spondylosis lower cervical spine. Mild neuroforaminal narrowing bilaterally in the lower cervical spine as well Electronically signed by: VITA MILLAN MD [facility] CERVICAL WITH OBLIQUESon CERVICAL WITH OBLIQUES EXAM: CERVICAL WI TH OBLIQUES HISTORY: Neck pain COMPARISON: None. TECHNIQUE: Five views of the cervical spine. FINDINGS: There is straightening of the normal cervical lordosis which may be related to positioning or paravertebral muscle spasm. There is moderate narrowing of the C5-C6 and C6-C7 disc spaces associated with endplate osteophytes. Remaining disc spaces are maintained in height. Prevertebral soft tissues are normal in thickness. The posterior elements appear intact and the facet joints are normally aligned. There may be mild bony foraminal narrowing on the right at C5-C6 and on the left at C6-C7. C1-C2 alignment is normal. IMPRESSION: 1. Straightening of the cervical lordosis which may be related to paravertebral muscle spasm or positioning. 2. Degenerative disc changes C5-C6 and C6-C7. Normal [facility] Vital Signs Date Time Vital Sign Value Performing Clinician Naida sommer 08-10-2023 06:55-0400 Diastolic blood pressure 75 mm[Hg] [facility] 08-10-2023 06:55-0400 Heart rate 80 /min [facility] 08-10-2023 06:55-0400 Respiratory rate 19 /min [facility] 08-10-2023 06:55-0400 SaO2% (BldA) [Mass fraction] 95 % [facility] 08-10-2023 06:55-0400 Systolic blood pressure 178 mm[Hg] [facility] 08-10-2023 00:44-0400 Body height 182.88 cm [facility] 08-10-2023 00:44-0400 Body mass index (BMI) [Ratio] 34.9 kg/m2 [facility] 08-10-2023 00:44-0400 Body temperature 97.9 [degF] [facility] 08-10-2023 00:44-0400 Body weight 117.02 kg [facility] 02-04-2023 03:08-0400 Body height 182.88 cm [facility] 02-04-2023 03:08-0400 Body mass index (BMI) [Ratio] 34.6 kg/m2 [facility] 02-04-2023 03:08-0400 Body temperature 97.8 [degF] [facility] 02-04-2023 03:08-0400 Body weight 115.8 kg [facility] 02-04-2023 03:08-0400 Diastolic blood pressure 86 mm[Hg] [facility] 02-04-2023 03:08-0400 Heart rate 92 /min [facility] 02-04-2023 03:08-0400 Respiratory rate 15 /min [facility] 02-04-2023 03:08-0400 SaO2% (BldA) [Mass fraction] 95 % [facility] 02-04-2023 03:08-0400 Systolic blood pressure 175 mm[Hg] [facility] Encounters Encounter Date Encounter Type Care Provider Facility Start: 10-02-2024 End: 10-02-2024 ambulatory Bryanna Sahu Facility:[facility] Start: 10-01-2024 End: 10-01-2024 Emergency department patient visit Jhonny Landeros Facility:[facility] Start: 08-10-2023 End: 08-10-2023 Emergency department patient visit [facility] Work Phone: Start: 02-04-2023 End: 02-04-2023 Emergency department patient visit [facility] Start: 09-28-2019 Patient encounter procedure KEVIN GAMBOA Facility:[facility] Start: 07-13-2019 End: 07-14-2019 Patient encounter procedure BRYANNA SAHU Facility:[facility] Procedures Date Procedure Procedure Detail Performing Clinician Start: 08-10-2023 CT of soft tissues o f neck with contrast Plan of Treatment Date Care Activity Detail Author Start: 08-10-2023 [facility] Start: 08-10-2023 [facility] Patient Education ED Poison Lex or Poison Watson Rash [facility] Work Phone: Patient referral [facility] Work Phone: Payers Date Payer Category Payer Unknown [id number] 1970 Unknown [id number] 1959 Self-pay NONE 1959 Self-pay Unknown [facility] [id number] Unknown [id number] [id number] Unknown [id number] Social History Date Type Detail Facility Start: 02-04-2023 End: 08-10-2023 Tobacco smoking status NHIS Unknown if ever smoked [facility] Start: 1970 Sex Assigned At Male [facility] Discharge summary 08-10-2023 Note Date & Type Note Facility 08-10-2023 Discharge summary Note Date/Time August 10, 2023 2:17am [facility] Medical Records Department [address] [place] [address] Emergency Department Summary 08/10/23 MR#: [id number] Acct: [id number] Name: STEVECHA Rep #:[id number] : 1970 53 From: Angela Clark DO PCP: Care Physician,No Primary Status :REG ER Location: ED HPI History of Present Illness Chief Complaint: Dental Detail of Chief Complaint: Dental pain and facial swelling Informant: patient Narrative Narrative: Patient presents to the emergency department complaint of tooth pain that started 3 days ago left lower jaw. Over the last couple days has had increased swelling to his neck and floor of the mouth. He denies fevers or chills or sweats. He denies difficulty swallowing. Patient tells me he has no medical history. [facility] Medical History Cholecystectomy planned Home Medications NK 08/10/23 [History Last Taken Unknown] Allergy/AdvReac Type Severity Reaction Status Date / Time No Known Allergies Allergy Verified 02/04/23 03:09 Social History Smoking Status: Current every day smoker tobacco type: cigarettes ROS ROS ED Review of Systems ROS Unobtainable: other Constitutional Constitutional ED: Reports lethargy; Denies chills, fever(s), sweats or weight loss Eyes Eyes: Denies blurry vision, change in vision or diplopia ENT ENT ED: Reports sore throat and other Details: Dental pain ; Denies rhinorrhea Cardiovascular Cardiovascular: Denies chest pain, orthopnea or racing heartbeat Respiratory/Chest Respiratory/Chest: Denies cough, dyspnea, dyspnea on exertion, orthopnea or sputum Gastrointestinal Gastrointestinal: Denies abdominal pain, diarrhea, nausea or vomiting Genitourinary Genitourinary ED: Denies dysuria, hematuria or urinary frequency Musculoskeletal Musculoskeletal: Denies arthralgias, back pain, myalgias or neck pain Integumentary Denies abscess, Abrasions or rash Neurologic Neurologic: Denies headache(s) or weakness Psychiatric Psychiatric: Denies anxiety, depression or suicidal thoughts Endocrine Endocrinology: Denies polydipsia, polyphagia or polyuria Hematologic/Lymphatic Hematologic/Lymphatic: Denies easy bleeding, easy bruising or lymphadenopathy Allergic/Immunologic Allergic/Immunologic ED: Denies mouth swelling, tongue swelling or urticaria EXAM Physical Exam Const Vital Signs: 08/10/23 00:44 08/10/23 04:00 08/10/23 03:00 Temperature 97.9 F Temperature Source Temporal Pulse Rate 90 83 81 Respiratory Rate 16 17 19 H Blood Pressure 198/108 H 189/105 H Blood Pressure Mean 138 133 Pulse Ox 96 96 95 Oxygen Delivery Method Room Air Room Air Room Air Positive well nourished and well developed General Appearance ED: well developed and NAD HEENT Reports TM's clear and moist mucous membranes HEENT Narrative: Patient has diffuse swelling to the floor of the mouth. Patient has tenderness along the left lower gingiva diffusely without any abscess noted or fluctuance. Multiple caries teeth. Patient has submental swelling and tenderness with some faint erythema. Uvula midline with no trismus. normocephalic and atraumatic; Negative for trauma or tenderness Tympanic Membrane ED: Yes TM's clear Eyes PERRL and EOMs intact bilaterally General Eye ED: Negative for pale conjunctiva or scleral icterus Neck no lymphadenopathy, supple and no JVD General: Negative for tenderness Chest Wall inspection of chest normal and palpation of chest normal Chest: Negative for tenderness Resp normal respiratory effort and clear to auscultation bilaterally Effort and Inspection: Negative for respiratory distress or pain with movement Auscultation: Negative for rhonchi, wheezes or diminished lung sounds Cardio regular rate, regular rhythm, S1 normal heart sound, S2 normal heart sound and no murmurs Peripheral Pulses: pulses 2+ throughout GI normal to inspection, nondistended, normoactive bowel sounds, soft to palpation,non-tender, non-distended and no masses Back/Spine no CVA tenderness and no thoracic nor lumbar tenderness Extremity normal to inspection General Extremety ED: Negative for edema General Extremity: Negative for edema Neuro oriented x3, CN's II-XII intact bilaterally, no sensory deficits noted and gait normal Sensorium / Orientation: awake, alert, oriented to person, oriented to place andoriented to time Motor Exam: strength 5/5 throughout and strength abnormal Psych mental status grossly normal Skin no rashes or lesions noted and no wounds MDM MDM MDM Narrative Medical decision making narrative: Patient presents with dental pain and mandible and submental swelling with concern for Cady's angina. IV line established. Patient was started on Zosyn IV. CBC with differential obtained showed an elevated white count of 12.9. CT scan with IV contrast of soft tissue neck obtained showed soft tissue swelling and inflammation without evidence of fluid collection or drainable abscess. CBC with differential obtained showed a white count 12.9 with hemoglobin of 15 and platelet count of 215. Chemistries unremarkable. Lactate was normal at 1.2. Discussed case with our hospitalist who asked that I discussed with oral maxillofacial surgeon if available. I attempted multiple times to contact Dr. Gu unsuccessfully. I was then asked to transfer patient to facility that would have oral maxillofacial availability. We attempted multiple hospitals including [facility] as well as [facility] and there were no beds available at these facilities. We contacted [facility] in [place] who I was told had bed availability and discussed case with Dr. Lomas who accepted transfer of patient to their facility. Patient reassessment at 5:30 AM. Patient resting comfortably. He has no respiratory distress. Awaiting bed at [facility]. Lab Data Attestation: I reviewed the patient's lab results. Labs: Laboratory Results - last 24 hr 08/10/23 01:15 WBC 12.9 H RBC 4.93 Hgb 15.5 Hct 45.9 MCV 93.1 MCH 31.4 MCHC 33.8 RDW Std Deviation 44.5 H RDW Coeff of Tony 13.1 Plt Count 215 MPV 8.3 Immature Gran % (Auto) 0.400 Neut % (Auto) 73.2 H Lymph % (Auto) 14.1 L Gage % (Auto) 11.6 H Eos % (Auto) 0.5 Baso % (Auto) 0.2 Absolute Neuts (auto) 9.5 H Absolute Lymphs (auto) 1.82 Nucleated RBC % 0 Sodium 141 Potassium 3.7 Chloride 108 H Carbon Dioxide 27.0 Anion Gap 6 BUN 13 Creatinine 1.29 Estim Creat Clear Calc 72.69 Est GFR (MDRD) Af Amer 75 Est GFR (MDRD) Non-Af 62 BUN/Creatinine Ratio 10.1 Glucose 131 H Lactic Acid 1.2 Calcium 8.6 Radiography Diagnostic Testing: Clinical Impression(s) from Imaging Studies Soft Tissue Neck CT 08/10/23 00:51 IMPRESSION: Mild inflammation in the submandibular/sublingual region, left greater than right. No fluid collection. No periapical lucencies. Multiple dental caries. Electronically Signed: Sanya Lay MD at 1:55 EDT , Discharge Plan Triage Chief Complaint: Dental ED Provider: Angela Clark Dx/Rx/DC Orders Clinical Impression: Pain, dental, Angina, Jose Prescriptions: No Action NK Primary Care Provider: Care Physician,No Primary Referrals: Care Physician,No Primary [Primary Care Provider] - Disposition Disposition: DC/Tx to Another Type of HCF What to do if you have Problems For any increased pain, shortness of breath, bleeding, nausea or vomiting, chestpain, or any unexpected problems, contact your Primary Care Provider. Call [facility] ([phone]) or report to the closest Emergency Room. Call 911 if necessary. 08/10/23 0736 <Electronically signed by Angela Clark DO> Cosigner Signature (if applicable): CC: No Primary Care Physician ~ Signed [facility] Work Phone: Discharge summary Note Date & Type Note Facility Discharge summary Note Date/Time February 04, 2023 4:03am [facility] Medical Records Department [address] [place] [address] Emergency Department Summary 02/04/23 MR#: [id number] Acct: [id number] Name: PATSY WILSON Rep #:[id number] 15 : 1970 52 From: Jin Grullon DO PCP: Care Physician,No Primary Status :REG ER Location: ED HPI History of Present Illness Chief Complaint: Rash Narrative Narrative: 52-year-old male presenting with rash on the right arm and the right side of hischest. He states he was out in the son about a week ago. He noticed a rash on the right forearm initially which is spread up his right arm. It is itchy innature. Its been weeping. He is concerned it could be poison lex/poison sumac/poison oak. [facility] Medical History Cholecystectomy planned Home Medications prednisone 10 mg tablet 10 mg PO DAILY #63 tabs 02/04/23 [Rx Last Taken Unknown] Allergy/AdvReac Type Severity Reaction Status Date / Time No Known Allergies Allergy Verified 02/04/23 03:09 Social History Smoking Status: Current every day smoker tobacco type: cigarettes ROS ROS ED Constitutional Constitutional ED: Denies chills, fever(s) or sweats Eyes Eyes: Denies blurry vision or change in vision ENT ENT ED: Denies ear pain or sore throat Cardiovascular Cardiovascular: Denies chest pain, palpitations or racing heartbeat Respiratory/Chest Respiratory/Chest: Denies cough, dyspnea or sputum Gastrointestinal Gastrointestinal: Denies abdominal pain, constipation, diarrhea, nausea or vomiting Genitourinary Genitourinary ED: Denies dysuria, hematuria or urinary frequency Musculoskeletal Musculoskeletal: Denies arthralgias, myalgias or neck pain Integumentary Reports rash; Denies abscess or Abrasions Neurologic Neurologic: Denies headache(s), paresthesias or weakness Psychiatric Psychiatric: Denies anxiety, depression, suicidal ideation or suicidal thoughts Endocrine Endocrinology: Denies polydipsia or polyuria EXAM Physical Exam Const Vital Signs: 02/04/23 03:08 Temperature 97.8 F Temperature Source Oral Pulse Rate 92 Respiratory Rate 15 Blood Pressure 175/86 H Blood Pressure Mean 115 Pulse Ox 95 Oxygen Delivery Method Room Air Positive well nourished Eyes PERRL and EOMs intact bilaterally Resp normal respiratory effort Cardio regular rate and regular rhythm Neuro oriented x3 and CN's II-XII intact bilaterally Psych mental status grossly normal Skin Skin Narrative: Weeping maculopapular rash on the right arm and right side of the chest wall. MDM MDM MDM Narrative Medical decision making narrative: Patient presenting with poison lex dermatitis versus poison oak or sumac. Patient started on prednisone in the ED. He will be given a extended taper for home. He is counseled on wound care. Follow-up with primary care to ensure resolution. Return precautions discussed. Impression: 1. Poison lex Discharge Plan Triage Chief Complaint: Rash ED Provider: Jin Grullon Dx/Rx/DC Orders Instructions: ED Poison Lex or Poison Watson Rash Prescriptions: New prednisone 10 mg tablet 10 mg PO DAILY Qty: 63 0RF Rx Instructions: 60 mg p.o. daily ?3 days, 50 mg p.o. daily ?3 days, 40 mg p.o. daily ?3 days,30 mg p.o. daily ?3 days, 20 mg p.o. daily ?3 days, 10 mg p.o. daily ?3 days. Primary Care Provider: Care Physician,No [facility] Care Physician,No Primary [Primary Care Provider] - Disposition Disposition: Home, Self Care What to do if you have Problems For any increased pain, shortness of breath, bleeding, nausea or vomiting, chestpain, or any unexpected problems, contact your Primary Care Provider. Call [facility] ([phone]) or report to the closest Emergency Room. Call 911 if necessary. 02/04/23 0403 <Electronically signed by Jin Gruloln DO> Cosigner Signature (if applicable): CC: No Primary Care Physician ~ Signed [facility] Work Phone: Evaluation note Note Date & Type Note Facility Evaluation note No assessment information availa ble [facility] Work Phone: Summary Purpose Family History No Family History Records FoundNo Family History Records FoundNo Family History Records Found Advance Directives No Advanced Directives Records Found Advance Directive Response Recorded Date/ Time Advance Directives No November 28, 2014 6:59pm Living Will No February 04, 2023 3:08am Power of Rubber Mixer No February 04 3:08am Advance Directive Response Recorded Date/ Time Advance Directives No November 28, 2014 6:59pm Living Will No August 10 12:46am Power of Rubber Mixer No August 10, 2023 12:46am Chief Complaint and Reason for Visit Chief Complaint rash Chief Complaint dental pain Additional Source Comments (unrecognized sect ion and content) No Status Records FoundNo Status Records FoundNo Status Records Found INFORMATION SOURCE (unrecogn ized section and content) DATE CREATED AUTHOR 09/29/2019 [facility] DATE CREATED AUTHOR AUTHOR'S ORGANIZ ATION 03/28/2022 [facility] DATE CREATED AUTHOR AUTHOR'S ORGANIZ ATION 11/08/2024 [facility] Care Teams (unrecognized sec tion and content) Team Status: Active Member Role Status Dates Dr. Oscar Cardona MD Family Provider Active No Primary Care Physician Primary Care Provider Active Team Status: Inactive Member Role Status Dates No Primary Care Physician Primary Care Provider Active Dr. Jin Grullon , DO Emergency Provider Active Team Status: Inactive Member Role Status Dates No Primary Care Physician Primary Care Provider Active Dr. Angela Clark , DO Emergency Provider Active Goals (unrecognized section and content) Goals may be documented in a n alternate sectionGoals may be documented in an alternate section FOR RECORDS PERTAINING TO PATIENTS WHO ARE OR HAVE BEEN ENROLLED IN A CHEMICAL DEPENDENCY/SUBSTANCEABUSE PROGRAM, SOME INFORMATION MAY BE OMITTED. This clinical summary was aggregated from multiple sources. Caution should be exercised in using it in the provision of clinical care. This summary normalizes information from multiple sources, and as a consequence, information in this document may materially change the coding, format and clinical context of patient data. In addition, data may be omitted in some cases. CLINICAL DECISIONS SHOULD BE BASED ON THE PRIMARY CLINICAL RECORDS. [facility] [employer] [facility] provides no warranty or guarantee of the accuracy or completeness of information in this document.
== END 2025-04-15 12:46 | disposition home or self-care (01) ==
LOC: ED 12:22
PROVIDERS: Emergency Provider Emergency Medicine; Visit Provider Emergency Medicine
DX: K05.10 Chronic gingivitis, plaque induced (principal); K05.30 Chronic periodontitis, unspecified; R03.0 Elevated blood-pressure reading, without diagnosis of hypertension; F17.210 Nicotine dependence, cigarettes, uncomplicated
CPT/HCPCS: 99282

== ENCOUNTER 2025-07-01 03:16 | Emergency (ER) | payer SELFPAY ==
[2025-07-01 03:18] VITALS: BP 205/97; PULSE 100; RESP 19; TEMP 37.7; O2SAT 97; BMI 34.7
[2025-07-01 03:22] VITALS: BP 205/97; PULSE 100; RESP 22; TEMP 37.7; O2SAT 99
[2025-07-01] MEDS: 0.9% Normal Saline (1000mL) 1,000 ML 999 ML IV (03:41)
--- OUTSIDE RECORDS SUMMARY | 2025-07-01 03:42 | XMS RPT_ITS | CCD ---
Author Organization [facility] Care Team Providers Care Cable Stretcher And Tester Name Role Phone KEVIN GAMBOA Admitting Unavailable BEE KEVIN Y Attending Unavailable KEVIN GAMBOA Consulting Unavailable BRYANNA SAHU Admitting Unavailable BRYANNA SAHU Attending Unavailable NONE, NONE Primary Care Unavailable Saji Turner [phone] Consulting Unavailable NONE, NONE Consulting Unavailable BRYANNA SAHU Consulting Unavailable Care Physician, No Primary Primary Care Provider Unavailable Chris TA, Dr. Monroy Emergency Provider [phone] Care Physician, No Primary Primary Care Unava ilable Bryanan Sahu Attending Unavailable Porfirio Perez Attending Unavailable Care Physician, No Primary Primary Care Unava ilable Care Physician, No Primary Primary Care Unava ilable Jhonny Landeros Attending Unavailable Medications Current Medications Medication Drug Class(es) Dates Sig (Normalized) Sig (Original) acetaminophen 325 mg / HYDROcodone bitartrate 5 mg oral tablet (1 source) Opioid Agonist Start: 04-15-2025 take 1 tablet by mouth every six hours as needed for pain Hydrocodone-Aceta minophen 5-325 mg tablet Active 1 {tbl} PO EVERY 6 HOURS NEEDED as needed for Pain 07 27April 15, 2025 Start: 04-15-2025 take 1 tablet by itzel th every six hours as needed for pain Hydrocodone-Acetaminophen 5-325 mg table t Active 1 {tbl} PO EVERY 6 HOURS NEEDED as needed for Pain 07 27April 15, 2025 Multivitamin (Daily Multi-Vitamin) tablet (1 source) Start: 10-01-2024 Multivitamin ( Daily Multi-Vitamin) tablet Active 1 {tbl} PO DAILY October 01, 2024 1:00am Arden-Arcade (Nk) (1 source) Start: 08-10-2023 Arden-Arcade (Nk) A ctive August 10, 2023 12:00am Adams 8-Iao-Wfl-Fish Oil (Fish Oil) 60-90-500 mg capsule (1 source) Start: 10-01-2024 Adams 3-Dha-Ep a-Fish Oil (Fish Oil) 60-90-500 mg capsule Active 1 NMA PO DAILY October 01, 2024 1:00am predniSONE 10 mg oral tablet (4 sources) Start: 10-01-2024 take 6 tablets by mouth once daily, then take 4 tablets by mouth once daily, then take 2 tablets by mouth once daily, then take 1 tablet by mouth once daily Prednisone 10 mg tablet Active 10 mg PO DAILY 48 October 01, 2024 1:00am 6 po qd x 3 days, 4 po qd x 3 days, 2 po qd x 3 days, 1 po qd x 3 days Start: 02-04-2023 End: 08-10-2023 Prednisone 10 mg tablet Disc ontinued 10 mg PO DAILY 63 February 04, 2023 12:00am August 10, 2023 2:49am 60 mg p.o. daily 3 days, 50 mg p.o. daily 3 days, 40 mg p.o. daily 3 days, 30 mg p.o. daily 3 days, 20 mg p.o. daily 3 days, 10 mg p.o. daily 3 days. sildenafil 50 mg oral tablet (1 source) Phosphodiesterase 5 Inhibitor Start: 10-01-2024 Sildenafil (Viagra) 50 mg tablet Active 50 mg PO DAILY as needed for sexual activity October 01, 2024 1:00am administer 30 minutes to 4 hours before activity Problems Active Problems Problem Classification Problem Date Documented Da te Episodic/Chronic Allergic reactions (1 source) Allergic reaction; Translations: [Allergy, unspecified, initial encounter] 10-09-2024 Episodic Diseases of mouth; excluding dental (2 sources) Jose's angina; Translations: [Cellulitis and abscess of mouth] 08-10-2023 Episodic Disorders of teeth and jaw (2 sources) Gingivitis; Translations: [Chronic gingivitis, plaque induced] 04-15-2025 Chronic Disorders of teeth and jaw (7 sources) Toothache; Translations: [Other specified disorders of teeth and supporting structures] Onset: 04-20-2025 04-14-2021 Episodic Essential hypertension (1 source) Hypertensive disorder; Translations: [Essential (primary) hypertension] 10-09-2024 Chronic Other circulatory disease (1 source) Elevated blood-pressure reading without diagnosis of hypertension; Translations: [Elevated blood-pressure reading, without diagnosis of hypertension] 04-15-2025 Episodic Other male genital disorders (1 source) Male erectile dysfunction, unspecified; Translations: [Erectile dysfunction] 10-09-2024 Chronic Residual codes; unclassified (2 sources) Decreased libido; Translations: [DECREASED LIBIDO] Onset: 09-28-2019 Episodic Past or Other Problems Problem Classification Problem Date Documented Da te Episodic/Chronic Other skin disorders (1 source) Rash and other nonspecific skin eruption; Translations: [Rash and other nonspecific skin eruption] Onset: 11-04-2024 Episodic Spondylosis; intervertebral disc disorders; other back problems (3 sources) Cervicalgia; Translations: [CERVICALGIA] Onset: 07-13-2019 Episodic Results Test Name Value Interpretation Reference Range Facility Emergency Department Summary on 04-15-2025 Emergency Department Summary [facility] Medical Records Department [address] [place] [address] Emergency Department Summary 04/15/25 MR#: [id number] Acct: [id number] Name: PATSY WILSON Rep #: [id number] : 1970 55 From: Porfirio Perez MD PCP: Care Physician,No Primary Status:PRE ER Location: ED HPI History of Present Illness Chief Complaint: Dental Detail of Chief Complaint: Dental pain tooth #27 and possibly 28 Informant: patient Onset/Context/Timing Onset: Yesterday Context: Sudden Onset Timing: Continuous Quality: Pain Location: Tooth #2728 Current Severity: Mild (Here after he put garlic in his mouth) Maximum Severity: Moderate Worsened by: Air Associated Symptoms Assocated Symptom - Dental: Negative for fever, jaw swelling, face swelling, cold sensitivity or hot sensitivity Narrative Narrative: Patient is a 55-year-old male who presents with abrupt onset of dental pain. He believes he broke tooth #27 and possibly 28. He has severe pain. He has no medical problems. 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 He does not have a primary care physician. He is a smoker. He denies fever, chills night sweats. He denies change in voice or difficulty swallowing. He denies history of medic fever, heart murmur, SBE or being immune suppressed. Prior similar symptoms: No Recent Illness/Hospitalizati on: No PFSH PFSH Medical History Cholecystectomy planned Home Medications ???Medication ???Instructions ???Recorded ???Last Taken ???Type multivitamin (Daily Multi-Vitamin 1 tab PO DAILY 10/01/24 Unknown H istory tablet) omega 2-jvx-vwf-fish oil 60 mg-90 1 cap PO DAILY 10/01/24 Unknown H istory mg-500 mg capsule (Fish Oil) prednisone 10 mg tablet 10 mg PO DAILY #48 TABLETS 4 Unknown Rx sildenafil 50 mg tablet (Viagra) 50 mg PO DAILY PRN sexual activity 10/01/24 Unknown Rx #14 tabs hydrocodone-acetamino phen 5-325mg 1 tab PO Q6H PRN PRN Pain 3 days 04/15/25 Unknown Rx 5mg-325mg #10 TABLETS Allergy/AdvReac Type Severity Reaction Status Date / Time No Known Allergies Allergy Verified 04/15/25 11:51 Social History Smoking Status: Current every day smoker tobacco type: cigarettes ROS ROS ED Constitutional Constitutional ED: Denies chills, fever(s), subjective or sweats Eyes Eyes: Denies blurry vision or change in vision ENT ENT ED: Reports other Details: HPI narrative ; Denies ear pain, rhinorrhea or sore throat Cardiovascular Cardiovascular: Denies chest pain or palpitations Respiratory/Chest Respiratory/Chest: Denies cough or dyspnea Gastrointestinal Gastrointestinal: Denies nausea or vomiting EXAM Physical Exam Const Vital Signs: 04/15/25 11:51 Temperature 96.1 F L Temperature Source Temporal Pulse Rate 85 Respiratory Rate 16 Blood Pressure 182/103 H Blood Pressure Mean 129 Pulse Ox 96 Oxygen Delivery Method Room Air Positive well nourished and well developed Constitutional Narrative: BMI is 32.7 General Appearance ED: well developed HEENT Reports TM's clear HEENT Narrative: There is no trismus. Negative for trauma or tenderness Face and Sinus: sinuses nontender Tympanic Membrane ED: Yes TM's clear Mouth ED: Yes lips normal, Yes tongue normal, Yes salivary gland normal, No mouth trauma and Yes oral and palatal mucosa abnormal Mouth: lips normal, tongue normal, salivary gland normal, No mouth trauma and oral and palatal mucosa abnormal Teeth and Gingiva: abnormal tooth and associated gingiva, gingiva abnormal, poor dentition and teeth discoloration Throat: posterior oropharynx normal Eyes PERRL and EOMs intact bilaterally Neck no lymphadenopathy, supple and no JVD Resp normal respiratory effort, no retractions and clear to auscultation bilaterally Cardio regular rate, regular rhythm, S1 normal heart sound, S2 normal heart sound and no murmurs Neuro oriented x3 and CN's II-XII intact bilaterally Sensorium / Orientation: alert Psych mental status grossly normal Skin no rashes or lesions noted MDM MDM MDM Narrative Medical decision making narrative: Patient with elevated blood pressure most likely due to pain since his most recent physical revealed no abnormality. Patient was treated with oral opiate analgesia and NSAIDs. He states his will drive him home. He needs dental x-rays which we do not have capability of performing. He does not have a dentist. He was referred to dentist and given the dental sheet. Also recommend that he follow-up at the [facility] to have blood pressure rechecked in 1 week. This was not treated because he had a normal blood pressure recently a (more content not included)... Normal [facility] Cerv Spine 4 or 5 Viewson Cerv Spine 4 or 5 Views [facility] Imaging Services [address], [place] [address] Cerv Spine 4 or 5 Views MR#: [id number] Acct: [id number] Name: PATSY WILSON Rep #: [id number] : 1970 M 54 From: Samy salas DO PCP: Care Physician,No Primary Status: REG CLI Study: Cerv Spine 4 or 5 Views Date of Exam: 10/02/24 Exam# [id number] Ordering Dr: Bryanna Sahu [id number] EXAM: XR CERVICAL SPINE, 4 OR 5 [...] CC: JC Sahu; No Primary Care Physician Dispute Resolution Analyst: Signed Normal [facility] Emergency Department Summary on 10-01-2024 Emergency Department Summary [facility] Medical Records Department [address] [place] [address] Emergency Department Summary 10/01/24 MR#: [id number] Acct: [id number] Name: PATSY WILSON Rep #: [id number] : 1970 54 From: Jhonny Landeros DO [...] symptoms have worsened he presents for evaluation. [facility] Medical History Cholecystectomy planned Home Medications ???Medication ???Instructions ???Recorded ???Last Taken ???Type multivitamin (Daily Multi-Vitamin 1 tab PO DAILY 10/01/24 Unknown History tablet) omega 3-vqz-xvy-fish oil 60 mg-90 1 cap PO DAILY [...] mouth an (more content not included)... Normal [facility] Absolute lymphocyte countOrd ered By: Angela Tankaleigh on 08-10-2023 Lymphocytes Auto (Unsp spec) [#/Vol] 1.82 10*3/uL 0.83-4.51 [facility] Basophil percentageOrdered B y: Angela Tankaleigh on 08-10-2023 Basophils/100 WBC (Bld) 0.2 % 0-1 [facility] Chloride [Moles/Vol] 108 mmol/L 98-107 [facility] Eosinophils/100 WBC (Bld) 0.5 % 0-5 [facility] Glucose [Mass/Vol] 131 mg/dL 74-106 [facility] Comment on above: Fasting Glucose resu lt greater than or equal to 126 mg/dL suggests DIABETES MELLITUS per A.D.A. criteria. Lactate [Moles/Vol] 1.2 mmol/L 0.4-2.0 [facility] Neutrophils (Bld) [#/Vol] 9.5 10*3/uL 2.0-7.7 [facility] Neutrophils/100 WBC (Bld) 73.2 % 47-70 [facility] Potassium [Moles/Vol] 3.7 mmol/L 3.5-5.1 [facility] Sodium [Moles/Vol] 141 mmol/L 136-145 [facility] WBC (Bld) [#/Vol] 12.9 10*3/uL 4.4-11.0 [facility] Blood erythrocytes count (nu mber/volume)Ordered By: Angela Clark on 08-10-2023 RBC (Bld) [#/Vol] 4.93 10*6/uL 4.6-6.2 [facility] Blood hemoglobin measurement (mass/volume)Ordered By: Angela Clark on 08-10-2023 Hemoglobin (Bld) [Mass/Vol] 15.5 g/dL 13.0-16.5 [facility] Blood lymphocytes/100 leukoc ytesOrdered By: Angela Clark on 08-10-2023 Lymphocytes/100 WBC (Bld) 14.1 % 19-41 [facility] Blood monocytes/100 leukocyt esOrdered By: Angela Clark on 08-10-2023 Monocytes/100 WBC (Bld) 11.6 % 0-10 [facility] Blood platelet mean volumeOr dered By: Angela Clark on 08-10-2023 Platelet mean volume (Bld) [Entitic vol] 8.3 fL 6.2-12.0 [facility] Determination of erythrocyte mean corpuscular volume (MCV)Ordered By: Angela Clark on 08-10-2023 MCV (RBC) [Entitic vol] 93.1 fL 80-94 [facility] Hematocrit Auto (Bld) [Volum e fraction]Ordered By: Angela Clark on 08-10-2023 Hematocrit (Bld) [Volume fraction] 45.9 % 40-54 [facility] Laboratory - Chemistry and C hemistry - challengeOrdered By: Angela Clark on 08-10-2023 CO2 [Moles/Vol] 27.0 mmol/L 21.0-32.0 [facility] Urea nitrogen/Creatinine [Mass ratio] 10.1 mg/mg 10-20 [facility] Laboratory - Hematology and Cell countsOrdered By: Angela Clark on 08-10-2023 Erythrocyte distribution width (RBC) [Entitic vol] 44.5 fL 35.1-43.9 [facility] Erythrocyte distribution width (RBC) [Ratio] 13.1 % 11.6-14.6 [facility] Immature granulocytes/100 WBC (Bld) 0.400 % 0.0-0.9 [facility] Comment on above: IG% - Immature Granu locytes (promyelocytes, myelocytes and metamyelocytes) > 1% indicates that a LEFT SHIFT is Present. MCH (RBC) [Entitic mass] 31.4 pg 27.0-32.0 [facility] Nucleated RBC/100 WBC (Bld) [Ratio] 0 % 0-5 [facility] MCHC Auto (RBC) [Mass/Vol]Or dered By: Angela Clark on 08-10-2023 MCHC (RBC) [Mass/Vol] 33.8 g/dL 32-36 [facility] No Panel InformationOrdered By: Angela Clark on 08-10-2023 Estimated Creatinine Clearance Calc 72.69 ml/min [facility] Estimated GFR (MDRD) Amer 75 mL/min >60 [facility] Estimated GFR (MDRD) Non-Af Amer 62 mL/min >60 [facility] Platelets bldOrdered By: Ignacia Clark on 08-10-2023 Platelets (Bld) [#/Vol] 215 10*3/uL 150-450 [facility] Serum or plasma calcium dorinda urement (mass/volume)Ordered By: Angela Clark on 08-10-2023 Calcium [Mass/Vol] 8.6 mg/dL 8.5-10.1 [facility] Serum or plasma creatinine m easurement (mass/volume)Ordered By: Angela Clark on 08-10-2023 Creatinine [Mass/Vol] 1.29 mg/dL 0.70-1.30 [facility] Comment on above: The validity of the calculated GFR & GFRAA in patients over 70 years has not been determined. Clinical correlation is essential. Serum or plasma urea nitroge n measurement (mass/volume)Ordered By: Angela Clark on 08-10-2023 Urea nitrogen [Mass/Vol] 13 mg/dL 05-11 [facility] Thin prep Papanicolaou smear with manual screeningOrdered By: Angela Clark on 08-10-2023 Thin prep Papanicolaou smear with manual screening 03-08 [facility] SPINE, CERVICAL MIN 4 VIEWSo n 03-25-2022 SPINE, CERVICAL MIN 4 VIEWS Patient Name: PATSY WILSON STUDY: SPINE, CERVICAL MIN 4 VIEWS; 03/25/2022 4:16 pm INDICATION: M54.2. COMPARISON: None. ACCESSION NUMBER(S): [id number] ORDERING CLINICIAN: BRYANNA SAHU FINDINGS: C-spine, five [...] well Electronically signed by: VITA MILLAN MD [facility] CERVICAL WITH OBLIQUESon CERVICAL WITH OBLIQUES EXAM: [...] Degenerative disc changes C5-C6 and C6-C7. Normal [facility] Vital Signs Date Time Vital Sign Value Performing Clinician Naida sommer 04-15-2025 11:51-0400 Body height 182.88 cm No Primary Care Physician [facility] 04-15-2025 11:51-0400 Body mass index (BMI) [Ratio] 32.6 kg/m2 No Primary Care Physician [facility] 04-15-2025 11:51-0400 Body temperature 96.1 [degF] No Primary Care Physician [facility] 04-15-2025 11:51-0400 Body weight 109.31 kg No Primary Care Physician [facility] 04-15-2025 11:51-0400 Diastolic blood pressure 103 mm[Hg] No Primary Care Physician [facility] 04-15-2025 11:51-0400 Heart rate 85 /min No Primary Care Physician [facility] 04-15-2025 11:51-0400 Respiratory rate 16 /min No Primary Care Physician [facility] 04-15-2025 11:51-0400 SaO2% (BldA) [Mass fraction] 96 % No Primary Care Physician [facility] 04-15-2025 11:51-0400 Systolic blood pressure 182 mm[Hg] No Primary Care Physician [facility] 08-10-2023 06:55-0400 Diastolic blood pressure 75 mm[Hg] [facility] 08-10-2023 06:55-0400 Heart rate 80 /min [facility] 08-10-2023 06:55-0400 Respiratory rate 19 /min [facility] 08-10-2023 06:55-0400 SaO2% (BldA) [Mass fraction] 95 % [facility] 08-10-2023 06:55-0400 Systolic blood pressure 178 mm[Hg] [facility] 08-10-2023 00:44-0400 Body height 182.88 cm [facility] 08-10-2023 00:44-0400 Body mass index (BMI) [Ratio] 34.9 kg/m2 [facility] 08-10-2023 00:44-0400 Body temperature 97.9 [degF] [facility] 08-10-2023 00:44-0400 Body weight 117.02 kg [facility] 02-04-2023 03:08-0400 Body height 182.88 cm [facility] 02-04-2023 03:08-0400 Body mass index (BMI) [Ratio] 34.6 kg/m2 [facility] 02-04-2023 03:08-0400 Body temperature 97.8 [degF] [facility] 02-04-2023 03:08-0400 Body weight 115.8 kg [facility] 02-04-2023 03:08-0400 Diastolic blood pressure 86 mm[Hg] [facility] 02-04-2023 03:08-0400 Heart rate 92 /min [facility] 02-04-2023 03:08-0400 Respiratory rate 15 /min [facility] 02-04-2023 03:08-0400 SaO2% (BldA) [Mass fraction] 95 % [facility] 02-04-2023 03:08-0400 Systolic blood pressure 175 mm[Hg] [facility] Encounters Encounter Date Encounter Type Care Provider Facility Start: 04-15-2025 End: 04-15-2025 Emergency department patient visit No Primary Care Physician -Emergency Department Work Phone: Start: 10-02-2024 End: 10-02-2024 ambulatory No Primary Care Physician Facility:[facility] Start: 10-01-2024 End: 10-01-2024 Emergency department patient visit No Primary Care Physician Facility:[facility] Start: 08-10-2023 End: 08-10-2023 Emergency department patient visit [facility]-Emergency Department Work Phone: Start: 02-04-2023 End: 02-04-2023 Emergency department patient visit [facility]-Emergency Department Start: 09-28-2019 Patient encounter procedure KEVIN GAMBOA Facility:[facility] Start: 07-13-2019 End: 07-14-2019 Patient encounter procedure BRYANNA SAHU Facility:[facility] Procedures Date Procedure Procedure Detail Performing Clinician Start: 08-10-2023 CT of soft tissues o f neck with contrast Plan of Treatment Date Care Activity Detail Author Start: 04-15-2025 [facility] Start: 08-10-2023 [facility] Start: 08-10-2023 [facility] Patient Education [facility] Work Phone: Patient referral [facility] Work Phone: Payers Date Payer Category Payer Unknown [id number] 1970 Unknown [id number] [id number] [id number] 1970 Unknown [id number] 2.16.8 [id number] 1959 Self-pay NONE 1959 Self-pay Unknown [address] [id number] Unknown [id number] Unknown [id number] 2.16.8 [id number] Unknown [id number] 2.16.8 [id number] Unknown [id number] 2.16.8 [id number] Social History Date Type Detail Facility Start: 02-04-2023 End: 08-10-2023 Tobacco smoking status AKIS Unknown if ever smoked [facility] Start: 1970 Sex Assigned At Male [facility] Start: 04-15-2025 Tobacco smoking stat us AKIS Smokes tobacco daily (finding) [facility] Discharge summary 04-15-2025 Note Date & Type Note Facility 04-15-2025 Discharge summary [facility] Discharge summary 08-10-2023 Note Date & Type Note Facility 08-10-2023 Discharge summary Note Date/Time August 10, 2023 2:17am [facility] Medical Records Department [address] [place] [address] Emergency Department Summary 08/10/23 MR#: [id number] Acct: [id number] Name: PATSY WILSON Rep #:[id number] : 1970 53 From: [...] tells me he has no medical history. PFSH PFS Medical History Cholecystectomy planned Home Medications NK [...] maxillofacial availability. We attempted multiple hospitals including [facility] in [facility] as well as [facility] and there were no beds available at these facilities. We contacted [facility] in [place] who I was told had bed availability and discussed case with Dr. Lomas who accepted transfer of patient to their facility. Patient reassessment at 5:30 AM. Patient resting comfortably. He has no respiratory distress. Awaiting bed at [facility]. Lab Data Attestation: I reviewed the [...] 73.2 H Lymph % (Auto) 14.1 L [place] % (Auto) 11.6 H Eos % (Auto) [...] your Primary Care Provider. Call [facility] ([phone]) or report to the closest Emergency Room. Call 911 if necessary. 08/10/23 0736 <Electronically signed by Angela Clark DO> Cosigner Signature (if applicable): CC: No Primary Care Physician ~ Signed [facility] Work Phone: Discharge summary Note Date & Type Note Facility Discharge summary Note Date/Time February 04, 2023 4:03am [facility] Medical Records Department [address] [place] [address] Emergency Department Summary 02/04/23 MR#: [id number] Acct: [id number] Name: PATSY WILSON Rep #:[id number] : [...] it could be poison lex/poison sumac/poison oak. [facility] Medical History Cholecystectomy planned Home Medications [...] Orders Instructions: ED Poison Lex or Poison Tovey Rash Prescriptions: New prednisone 10 mg tablet 10 mg PO DAILY Qty: 63 0RF Rx Instructions: 60 mg p.o. daily ?3 days, 50 mg p.o. daily ?3 days, 40 mg p.o. daily ?3 days,30 mg p.o. daily ?3 days, 20 mg p.o. daily ?3 days, 10 mg p.o. daily ?3 days. Primary Care Provider: Care Physician,Aditi Primary Referrals: [facility] [Provider Group] - 3-5 Days Care Physician,No Primary [Primary Care Provider] - Disposition Disposition: Home, Self Care What to do if you have Problems For any increased pain, shortness of breath, bleeding, nausea or vomiting, chestpain, or any unexpected problems, contact your Primary Care Provider. Call [facility] ([phone]) or report to the closest Emergency Room. Call 911 if necessary. 02/04/23 0403 <Electronically signed by Jin Grullon DO> Cosigner Signature (if applicable): CC: No Primary Care Physician ~ Signed [facility] Work Phone: Discharge summary Note Date & Type Note Facility Discharge summary Note Date/Time April 15, 2025 12:21pm [facility] Medical Records Department [address] [place] [id number] Emergency Department Summary 04/15/25 MR#: [id number] Acct: [id number] Name: PATSY WILSON Rep #:[id number] 13 : 1970 55 From: Porfirio Perez MD PCP: Care Physician,No Primary Status :PRE ER Location: ED HPI History of Present Illness Chief Complaint: Dental Detail of Chief Complaint: Dental pain tooth #27 and possibly 28 Informant: patient Onset/Context/Timing Onset: Yesterday Context: Sudden Onset Timing: Continuous Quality: Pain Location: Tooth #2728 Current Severity: Mild (Here after he put garlic in his mouth) Maximum Severity: Moderate Worsened by: Air Associated Symptoms Assocated Symptom - Dental: Negative for fever, jaw swelling, face swelling, cold sensitivity or hot sensitivity Narrative Narrative: Patient is a 55-year-old male who presents with abrupt onset of dental pain. Hebelieves he broke tooth #27 and possibly 28. He has severe pain. He has no medical problems. 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 He does not have a primary care physician. Heis a smoker. He denies fever, chills night sweats. He denies change in voice or difficulty swallowing. He denies history of medic fever, heart murmur, SBE or being immunesuppressed. Prior similar symptoms: No Recent Illness/Hospitalization: No PFSH PFSH Medical History Cholecystectomy planned Home Medications ?Medication ?Instructions ?Recorded ?Last Taken ?Type multivitamin (Daily Multi-Vitamin 1 tab PO DAILY 10/01 Unknown History tablet) omega 1-yao-nnu-fish oil 60 mg-90 1 cap PO DAILY 10/01 Unknown History mg-500 mg capsule (Fish Oil) prednisone 10 mg tablet 10 mg PO DAILY #48 TABLETS 1 12/02/23 Unknown Rx sildenafil 50 mg tablet (Viagra) 50 mg PO DAILY PRN se xual activity 10/01/24 Unknown Rx #14 tabs hydrocodone-acetaminophen 5-325mg 1 tab PO Q6H PRN PRN Pain 3 days 04/15/25 Unknown Rx 5mg-325mg #10 TABLETS Allergy/AdvReac Type Severity Reaction Status Date / Time No Known Allergies Allergy Verified 04/15/25 11:51 Social History Smoking Status: Current every day smoker tobacco type: cigarettes ROS ROS ED Constitutional Constitutional ED: Denies chills, fever(s), subjective or sweats Eyes Eyes: Denies blurry vision or change in vision ENT ENT ED: Reports other Details: HPI narrative ; Denies ear pain, rhinorrhea or sore throat Cardiovascular Cardiovascular: Denies chest pain or palpitations Respiratory/Chest Respiratory/Chest: Denies cough or dyspnea Gastrointestinal Gastrointestinal: Denies nausea or vomiting EXAM Physical Exam Const Vital Signs: 04/15/25 11:51 Temperature 96.1 F L Temperature Source Temporal Pulse Rate 85 Respiratory Rate 16 Blood Pressure 182/103 H Blood Pressure Mean 129 Pulse Ox 96 Oxygen Delivery Method Room Air Positive well nourished and well developed Constitutional Narrative: BMI is 32.7 General Appearance ED: well developed HEENT Reports TM's clear HEENT Narrative: There is no trismus. Negative for trauma or tenderness Face and Sinus: sinuses nontender Tympanic Membrane ED: Yes TM's clear Mouth ED: Yes lips normal, Yes tongue normal, Yes salivary gland normal, No mouth trauma and Yes oral and palatal mucosa abnormal Mouth: lips normal, tongue normal, salivary gland normal, No mouth trauma and oral and palatal mucosa abnormal Teeth and Gingiva: abnormal tooth and associated gingiva, gingiva abnormal, poordentition and teeth discoloration Throat: posterior oropharynx normal Eyes PERRL and EOMs intact bilaterally Neck no lymphadenopathy, supple and no JVD Resp normal respiratory effort, no retractions and clear to auscultation bilaterally Cardio regular rate, regular rhythm, S1 normal heart sound, S2 normal heart sound and no murmurs Neuro oriented x3 and CN's II-XII intact bilaterally Sensorium / Orientation: alert Psych mental status grossly normal Skin no rashes or lesions noted MDM MDM MDM Narrative Medical decision making narrative: Patient with elevated blood pressure most likely due to pain since his most recent physical revealed no abnormality. Patient was treated with oral opiate analgesia and NSAIDs. He states his will drive him home. He needs dental x-rays which we do not have capability of performing. He does not have a dentist. He was referred to dentist and given the dental sheet. Also recommendthat he follow[facility] at the [facility] to have blood pressure rechecked in 1 week. This was not treated because he had a normal blood pressure recently and has no history of any medical problems. Furthermore, he is asymptomatic. Discharge Plan Triage Chief Complaint: Dental ED Provider: Porfirio Perez Dx/Rx/DC Orders Clinical Impression: Pain, dental, Gingivitis, Periodontitis, Elevated blood-pressure reading without diagnosis of hypertension Instructions: ED Dental Pain, ED Hypertension, To Be Confirmed Prescriptions: New hydrocodone-acetaminophen 5-325 mg tablet 1 tab PO Q6H PRN PRN (Reason: Pain) 3 Days Qty: 10 0RF No Action multivitamin [Daily Multi-Vitamin] Tablet 1 tab PO DAILY omega 4-ntm-ysj-fish oil [Fish Oil] 60-90-500 mg capsule 1 cap PO DAILY prednisone 10 mg tablet 10 mg PO DAILY Qty: 48 0RF Rx Instructions: 6 po qd x 3 days, 4 po qd x 3 days, 2 po qd x 3 days, 1 po qd x 3 days sildenafil [Viagra] 50 mg tablet 50 mg PO DAILY PRN (Reason: sexual activity) Qty: 14 0RF Rx Instructions: administer 30 minutes to 4 hours before activity Primary Care Provider: Care Physician,No [facility]2 We[facility] Care Physician,No Primary [Primary Care Provider] - Print Language: Tajik Disposition Disposition: Home, Self Care What to do if you have Problems For any increased pain, shortness of breath, bleeding, nausea or vomiting, chestpain, or any unexpected problems, contact your Primary Care Provider. Call [facility] ([phone]) or report to the closest Emergency Room. Call 911 if necessary. 04/15/25 1221 <Electronically signed by Porfirio Perez MD> Cosigner Signature (if applicable): CC: No Primary Care Physician ~ Signed [facility] Work Phone: Evaluation note Note Date & Type Note Facility Evaluation note No assessment information availa ble [facility] Work Phone: Reason for referral (narrative) Note Date & Type Note Facility Reason for referral (narrative) No reason for referral information available [facility] Work Phone: Summary Purpose Family History No Family History Records FoundNo Family History Records FoundNo Family History Records Found Advance Directives No Advanced Directives Records Found Advance Directive Response Recorded Date/ Time Advance Directives No November 28, 2014 6:59pm Living Will No February 04, 2023 3:08am Power of Ski Top Trimmer No February 04 3:08am Advance Directive Response Recorded Date/ Time Advance Directives No November 28, 2014 6:59pm Living Will No August 10 12:46am Power of Ski Top Trimmer No August 10, 2023 12:46am Advance Directive Response Recorded Date/ Time Do you have a Healthcare Power of Ski Top Trimmer? No April 15, 2025 12:33pm Advance Directives No November 28, 2014 6:59pm Chief Complaint and Reason for Visit Chief Complaint rash Chief Complaint dental pain Chief Complaint Admit Date DENTAL April 15, 2025 11:5 1am Additional Source Comments (unrecognized sect ion and content) No Status Records FoundNo Status Records FoundNo Status Records Found INFORMATION SOURCE (unrecogn ized section and content) DATE CREATED AUTHOR 09/29/2019 [facility] DATE CREATED AUTHOR AUTHOR'S ORGANIZ ATION 03/28/2022 [facility] DATE CREATED AUTHOR AUTHOR'S ORGANIZ ATION 04/22/2025 [facility] Care Teams (unrecognized sec tion and content) [...] Angela Clark , DO Emergency Provider Active Team Status: Active Member Role Status Dates No Primary Care Physician Primary Care Provider Active Team Status: Inactive Member Role Status Dates No Primary Care Physician Primary Care Provider Active Start: April 15, 2025 End: April 15, 2025 Dr. Porfirio Perez MD Emergency Provider Active Sta rt: April 15, 2025 End: April 15, 2025 Goals (unrecognized section and content) Goals may be documented in a n alternate sectionGoals may be documented in an alternate sectionGoals may be documented in an [...] BE BASED ON THE PRIMARY CLINICAL RECORDS. [employer] provides no warranty or guarantee of the accuracy or completeness of information in this document.
[2025-07-01 03:46] LABS: Hematocrit 47.1 % (40-54); Hemoglobin 16.8 g/dL (13.0-16.5); Immature Granulocytes Count 0.130 X10^3/uL (0.0-0.0); Mean Corp Hgb Conc 35.7 g/dL (32-36); Mean Corpuscular Volume 90.1 fL (80-94); Mean Platelet Vol. 8.3 fl (6.2-12.0); NRBC Flagged by Analyzer 0 % (0-5); POSITIVE DIFFERENTIAL YES; Platelet Count 207 K/mm3 (150-450); RBC Distribution Width CV 12.9 % (11.6-14.6); RBC Distribution Width SD 42.1 fl (35.1-43.9); Red Blood Count 5.23 M/mm3 (4.6-6.2); White Blood Count 20.6 K/mm3 (4.4-11.0)
--- NOTE | 2025-07-01 03:49 | RAD_ITS ---
PROCEDURE: TIBIA FIBULA 2 VIEWS 07/01/2025 REASON FOR EXAM: ? OSTEO TECHNIQUE: 1 view(s) of the pelvis. COMPARISON: None available. FINDINGS: Hardware: None Bones: No acute fractures or dislocations. Joints: Normal alignment at the hips and sacroiliac joints. soft tissues: Soft tissues are unremarkable. Other: No cortical destruction to suggest osteomyelitis. RAD/Tibia & Fibula 2 Views IMPRESSION: No acute fractures or dislocations. Reading Location: [facility]
[2025-07-01] MEDS: Piperacil/Tazobactam 3.375 GM in 0.9% Normal Saline (50mL MB+) 50 ML IV (03:56)
[2025-07-01 04:22] VITALS: BP 180/90; PULSE 94; RESP 22; TEMP 37.6; O2SAT 97
[2025-07-01 04:28] LABS: Anion Gap 10 (5-15); BUN 16 mg/dL (4-19); BUN/Creat Ratio 13.2 RATIO (10-20); Calcium,Total 9.4 mg/dL (7.6-11.0); Carbon Dioxide 27.6 mmol/L (21.0-32.0); Chloride 97 mmol/L (98-108); Estimated Creatinine Clearance 93.08 ml/min (50-250); Glucose 127 mg/dL (70-99); Potassium 4.7 mmol/L (3.3-5.1); Procalcitonin 0.52 ng/mL (<=0.10)
[2025-07-01] MEDS: 0.9% Normal Saline (250mL Bag) 250 ML 15 ML IV (04:50)
[2025-07-01] MEDS: Vancomycin HCl 1,750 MG in 0.9% Normal Saline (500mL Bag) 500 ML 250 MG IV (04:50)
[2025-07-01 04:59] VITALS: BP 172/89; PULSE 93; RESP 20; TEMP 37.2; O2SAT 98
--- NOTE | 2025-07-01 05:43 | EX.ED.DYSGE1 ---
HPI History of Present Illness Chief Complaint: General Illness Informant: patient and spouse/S.O. Narrative Narrative: Patient is a 55-year-old male who reports no significant past medical history. He states he began to feel subjective fevers and chills yesterday and also noticed some redness along the lower portion of his right leg. He states that he has been building a shed and has had unintentional scrapes to his lower legs because of this. He states there is no associated abdominal pain cough shortness of breath nausea vomiting diarrhea or dysuria. He denies any past medical history. He states that he has concern for developing infection based on his symptoms and therefore comes in for evaluation [facility] Medical History (Updated 07/01/25 @ 06:[address] Jhonny Landeros DO) Tooth infection Cholecystectomy planned Home Medications ?Medication ?Instructions ?Recorded ?Last Taken ?Type hydrocodone-acetaminophen 5-325mg 1 tab PO Q6H PRN PRN Pain 3 days 04/15/25 Unknown Rx 5mg-325mg #10 TABLETS clindamycin HCl 300 mg capsule 300 mg PO 4X/DAY 10 days #40 caps 07/01/25 Unknown Rx (Cleocin HCl) Allergy/AdvReac Type Severity Reaction Status Date / Time No Known Allergies Allergy Verified 07/01/25 03:18 Family History no significant family his Surgical History (Updated 07/01/25 @ 03:19 by Orlando Walton) Hx of cholecystectomy Social History Smoking Status: Current every day smoker tobacco type: cigarettes ROS ROS ED Constitutional Constitutional ED: Reports chills, fever(s) and subjective ENT ENT ED: Denies rhinorrhea or sore throat Cardiovascular Cardiovascular: Denies chest pain Respiratory/Chest Respiratory/Chest: Denies cough or dyspnea Gastrointestinal Gastrointestinal: Denies abdominal pain, diarrhea, nausea or vomiting Genitourinary Genitourinary ED: Denies dysuria Musculoskeletal Musculoskeletal: Reports other Details: Positive right leg pain ; Denies myalgias Integumentary Reports Abrasions and other Details: Positive redness right lower leg Neurologic Neurologic: Denies headache(s) Hematologic/Lymphatic Hematologic/Lymphatic: Denies easy bleeding or easy bruising EXAM Physical Exam Const Vital Signs: 07/01/25 03:18 07/01/25 03:18 07/01/25 03:22 Temperature 99.8 F H 99.8 F H Temperature Source Oral Oral Pulse Rate 100 100 Respiratory Rate 19 H 22 H Respiratory Effort Normal Respiratory Pattern Normal Blood Pressure 205/97 H 205/97 H Blood Pressure Mean 133 133 Pulse Ox 97 99 Oxygen Delivery Method Room Air Room Air 07/01/25 04:22 07/01/25 04:59 Temperature 99.6 F H 98.9 F Temperature Source Oral Oral Pulse Rate 94 93 Respiratory Rate 22 H 20 H Respiratory Effort Respiratory Pattern Blood Pressure 180/90 H 172/89 H Blood Pressure Mean 120 116 Pulse Ox 97 98 Oxygen Delivery Method Room Air Room Air Positive well nourished, well developed and obese General Appearance ED: well developed Nutritional Appearance: obese HEENT HEENT Narrative: Normocephalic atraumatic No tongue or lip swelling no oral lesions no airway edema or compromise; no secondary findings in the posterior pharynx to suggest infection Eyes PERRL and EOMs intact bilaterally General Eye ED: Negative for scleral icterus Neck supple Neck Narrative: No nuchal rigidity or meningeal signs noted Resp normal respiratory effort and clear to auscultation bilaterally Resp Narrative: No nasal flaring retractions tachypnea or accessory muscle use Breath sounds are overall clear to auscultation without signs of respiratory distress Cardio regular rate and regular rhythm GI normal to inspection, nondistended, normoactive bowel sounds, non-tender, non-distended and no masses GI Narrative: No voluntary guarding or rigidity or pulsatile mass Auscultation: normoactive bowel sounds Palpation: soft Back/Spine no CVA tenderness Extremity Extremity Narrative: Right lower extremity is neurovascularly intact Patient has multiple superficial abrasions to the right leg; along the posterior aspect of the right leg starting just above the ankle and tracking to the mid calf is asymmetric erythema and warm. No obvious abscess formation noted. No crepitance palpated. No lymphangitic streaking. All compartments are soft and compressible going against compartment syndrome Neuro oriented x3, CN's II-XII intact bilaterally and no sensory deficits noted Sensorium / Orientation: alert Motor Exam: strength 5/5 throughout Psych mental status grossly normal Skin Skin Narrative: Soft tissue changes to the right lower leg as documented above MDM MDM MDM Narrative Medical decision making narrative: Patient arrived to the ER hypertensive and with low-grade fever. With his report of subjective fevers and chills and leg pain as well as exam showing redness there is concern for cellulitis versus osteomyelitis versus early abscess. The patient denies congestion and cough going against pneumonia or viral URI and he does not endorse belly pain nausea vomiting diarrhea going against abdominal infection such as norovirus or rotavirus. At this time with the most likely diagnosis being cellulitis from inadvertent injury to the right lower leg while he was building his shed basic blood work will be obtained as well as a x-ray to rule out osteomyelitis or retained foreign body. White blood cell count is elevated at 21 and his neutrophil count is elevated at 19. Despite these high elevations his lactic acid is normal at 1.2 and the procalcitonin is just barely elevated at 0.5. X-ray revealed no sign of retained foreign body gas producing infection/free air or osteomyelitis. With concern for systemic infection blood cultures were obtained and he was started on vancomycin and Zosyn. I discussed with patient potential for admission based on his high white blood cell count and low-grade fever. He states that he does not want to be admitted to the hospital. At this time he is not hypotensive his temperature was truly not febrile as it was under 100.4 and as his lactic acid is normal concern for tissue necrosis or systemic infection is also low. I informed patient that there is a possibility that his symptoms will worsen despite antibiotics or that his blood cultures will result positive which could necessitate return for IV therapy and admission. He also understands that even though he will be prescribed antibiotics that there is a chance that his infection could worsen and by the time he returns to the ER there may be significant adverse outcomes such as permanent disability loss of limb or even . He states he is feeling much better at this time and would prefer to still take oral antibiotics at home and return if his cultures are positive or if symptoms are worsening. He is awake alert and oriented and competent to make this decision. Therefore I will start him on clindamycin secondary to cellulitis and will discharge the patient home as requested History & Record Review Discussion w/independent historian: Patient Lab Data Attestation: I reviewed the patient's lab results. Labs: Laboratory Results - last 24 hr 07/01/25 03:37 WBC 20.6 H RBC 5.23 Hgb 16.8 H Hct 47.1 MCV 90.1 MCH 32.1 H MCHC 35.7 RDW Std Deviation 42.1 RDW Coeff of Tony 12.9 Plt Count 207 MPV 8.3 Immature Gran % (Auto) 0.600 Neut % (Auto) 89.9 H Lymph % (Auto) 2.9 L [place] % (Auto) 6.3 Eos % (Auto) 0.0 Baso % (Auto) 0.3 Absolute Neuts (auto) 18.5 H Absolute Lymphs (auto) 0.60 L Nucleated RBC % 0 Sodium 135 Potassium 4.7 Chloride 97 L Carbon Dioxide 27.6 Anion Gap 10 BUN 16 Creatinine 1.18 Estim Creat Clear Calc 93.08 Est GFR (MDRD) Non-Af 73 BUN/Creatinine Ratio 13.2 Glucose 127 H Lactic Acid 1.2 Calcium 9.4 Procalcitonin 0.52 H Radiography Diagnostic Testing: Clinical Impression(s) from Imaging Studies Tibia/Fibula X-Ray 07/01/25 03:49 IMPRESSION: No acute fractures or dislocations. Reading Location: [facility] X-ray of the right tibia/fibula as interpreted by the emergency medicine physician reveals no sign of acute fracture or dislocation free air or osteomyelitis Discharge Plan Triage Chief Complaint: General Illness ED Provider: Jhonny Landeros Dx/Rx/DC Orders Clinical Impression: Cellulitis of right leg, Hypertension Instructions: Cellulitis Dc Prescriptions: New clindamycin HCl [Cleocin HCl] 300 mg capsule 300 mg PO 4X/DAY 10 Days Qty: 40 0RF No Action hydrocodone-acetaminophen 5-325 mg tablet 1 tab PO Q6H PRN PRN (Reason: Pain) 3 Days Qty: 10 0RF Primary Care Provider: Care Physician,No Primary Referrals: Edil Whitley MD [Med Staff - Active Staff] - Care Physician,No Primary [Primary Care Provider] - Activity Restrictions/Additional Instructions: Your history and exam is concerning/consistent with cellulitis. This is a soft tissue infection. Please take the antibiotic as directed to help resolve this. It would typically take 2 to 3 days for the antibiotic to take effect. If the redness continues to spread despite taking the antibiotic, you notice streaking up the leg, or you develop a persistent fever or feel your symptoms are worsening in any way it could indicate that you may need prolonged IV antibiotics and therefore please return to the ER for repeat evaluation Print Language: Bengali Disposition Disposition: Home, Self Care
[2025-07-01 06:38] VITALS: BP 190/86; PULSE 84; RESP 20; TEMP 37.2; O2SAT 99
[2025-07-01 06:59] VITALS: BP 185/80; PULSE 80; RESP 19; O2SAT 97
== END 2025-07-01 07:38 | disposition home or self-care (01) ==
PROVIDERS: Emergency Provider Emergency Medicine; Visit Provider Emergency Medicine
DX: L03.115 Cellulitis of right lower limb (principal); I10 Essential (primary) hypertension; F17.210 Nicotine dependence, cigarettes, uncomplicated; E66.9 Obesity, unspecified
CPT/HCPCS: 73590; 80048; 83605; 84145; 85025; 87040; 96365; 96366; 96368; 99284; A4216

== ENCOUNTER 2025-07-28 09:09 | Emergency (ER) | payer OTHER, SELFPAY ==
[2025-07-28 09:10] VITALS: BP 222/103; PULSE 89; RESP 18; TEMP 36.6; O2SAT 98; BMI 32.9
--- OUTSIDE RECORDS SUMMARY | 2025-07-28 09:39 | XMS RPT_ITS | CCD ---
Author Organization [facility] Care Team Providers Care Data Base Design Analyst Name Role Phone KEVIN GAMBOA Admitting Unavailable KEVIN GAMBOA Attending Unavailable KEIVN GAMBOA Consulting Unavailable BRYANNA SAHU Admitting Unavailable BRYANNA SAHU Attending Unavailable NONE, NONE Primary Care Unavailable Saji Turner [phone] Consulting Unavailable NONE, NONE Consulting Unavailable BRYANNA SAHU Consulting Unavailable Care Physician, No Primary Primary Care Provider Unavailable Dr. Porfirio Perez MD Emergency Provider Dr. Porfirio Perez MD Attending Provider [phone] Jhonny Landeros DO Emergency Provider [phone] Care Physician, No Primary Primary Care Unava ilable Porfirio Perez Attending Unavailable Care Physician, No Primary Primary Care Unava ilable Jhonny Landeros Attending Unavailable Jhonny Landeros Attending Unavailable Care Physician, No Primary Primary Care Unava ilable Care Physician, No Primary Primary Care Unava ilable Bryanna Sahu Attending Unavailable Medications Current Medications Medication Drug Class(es) Dates Sig (Normalized) Sig (Original) acetaminophen 325 mg / HYDROcodone bitartrate 5 mg oral tablet (2 sources) Opioid Agonist Start: 04-15-2025 take 1 tablet by mouth every six hours as needed for pain Hydrocodone-Acetam inophen 5-325 mg tablet Active 1 {tbl} PO EVERY 6 HOURS NEEDED as needed for Pain 10 3 0 April 15, 2025 Toothache Elevated blood pressure reading without diagnosis of hypertension Other specified disorders of teeth and supporting structures Elevated blood-pressure reading, without diagnosis of hypertension clindamycin 300 mg oral capsule (1 source) Lincosamide Antibacterial Start: 07-01-2025 take 1 capsule by mouth four times daily Clindamycin Hcl (Cleocin Hcl) 300 mg capsule Active 300 mg PO 4 TIMES DAILY 40 10 0 July 01, 2025 12:00am [place] (Nk) (1 source) Start: 08-10-2023 [place] (Nk) Active August 10, 2023 12:00am Completed/Discontinued Medications Medication Drug Class(es) Dates Sig (Normalized) Sig (Original) Multivitamin (Daily Multi-Vitamin) tablet (2 sources) Start: 10-01-2024 End: 07-01-2025 Multivitamin (Daily Multi-Vitamin) tablet Discontinued 1 {tbl} PO DAILY October 01, 2024 1:00am July 01, 2025 3:22am Start: 10-01-2024 Multivitamin ( Daily Multi-Vitamin) tablet Active 1 {tbl} PO DAILY October 01, 2024 1:00am [place] 6-Gki-Lfo-Fish Oil (Fi sh Oil) 60-90-500 mg capsule (2 sources) Start: 10-01-2024 End: 07-01-2025 [place] 8-Ynu-Efb-Fish Oil (Fi sh Oil) 60-90-500 mg capsule Discontinued 1 NMA PO DAILY October 01, 2024 1:00am July 01, 2025 3:22am Start: 10-01-2024 [place]fall 3-Dha-Ep a-Fish Oil (Fish Oil) 60-90-500 mg capsule Active 1 NMA PO DAILY October 01, 2024 1:00am predniSONE 10 mg oral tablet (6 sources) Start: 10-01-2024 End: 07-01-2025 take 6 tablets by mouth once daily, then take 4 tablets by mouth once daily, then take 2 tablets by mouth once daily, then take 1 tablet by mouth once daily Prednisone 10 mg tablet Discontinued 10 mg PO DAILY 48 0 October 01, 2024 1:00am July 01, 2025 3:22am 6 po qd x 3 days, 4 po qd x 3 days, 2 po qd x 3 days, 1 po qd x 3 days Start: 02-04-2023 End: 08-10-2023 Prednisone 10 mg tablet Disc ontinued 10 mg PO DAILY 63 0 February 04, 2023 12:00am August 10, 2023 2:49am 60 mg p.o. daily 3 days, 50 mg p.o. daily 3 days, 40 mg p.o. daily 3 days, 30 mg p.o. daily 3 days, 20 mg p.o. daily 3 days, 10 mg p.o. daily 3 days. sildenafil 50 mg oral tablet (2 sources) Phosphodiesterase 5 Inhibitor Start: 10-01-2024 End: 07-01-2025 Sildenafil (Viagra) 50 mg tablet Discontinued 50 mg PO DAILY as needed for sexual activity 14 0 October 01, 2024 1:00am July 01, 2025 3:22am Erectile dysfunction Male erectile dysfunction, unspecified administer 30 minutes to 4 hours before activity Problems Active Problems Problem Classification Problem Date Documented Da te Episodic/Chronic Allergic reactions (2 sources) Allergic reaction; Translations: [Allergy, unspecified, initial encounter] 10-09-2024 Episodic Diseases of mouth; excluding dental (3 sources) Jose's angina; Translations: [Cellulitis and abscess of mouth] 08-10-2023 Episodic Disorders of teeth and jaw (4 sources) Gingivitis; Translations: [Chronic gingivitis, plaque induced] 04-15-2025 Chronic Disorders of teeth and jaw (10 sources) Toothache; Translations: [Other specified disorders of teeth and supporting structures] Onset: 04-20-2025 04-14-2021 Episodic Essential hypertension (3 sources) Hypertensive disorder; Translations: [Essential (primary) hypertension] 10-09-2024 Chronic Other circulatory disease (2 sources) Elevated blood-pressure reading without diagnosis of hypertension; Translations: [Elevated blood-pressure reading, without diagnosis of hypertension] 04-15-2025 Episodic Other connective tissue disease (1 source) Other specified soft tissue disorders; Translations: [Other specified soft tissue disorders] Onset: 07-05-2025 Episodic Other male genital disorders (2 sources) Male erectile dysfunction, unspecified; Translations: [Erectile dysfunction] 10-09-2024 Chronic Residual codes; unclassified (2 sources) Decreased libido; Translations: [DECREASED LIBIDO] Onset: 09-28-2019 Episodic Skin and subcutaneous tissue infections (1 source) Cellulitis of right lower limb; Translations: [Cellulitis of right lower limb] 07-01-2025 Episodic Past or Other Problems Problem Classification Problem Date Documented Da te Episodic/Chronic Other skin disorders (1 source) Rash and other nonspecific skin eruption; Translations: [Rash and other nonspecific skin eruption] Onset: 11-04-2024 Episodic Spondylosis; intervertebral disc disorders; other back problems (3 sources) Cervicalgia; Translations: [CERVICALGIA] Onset: 07-13-2019 Episodic Results Test Name Value Interpretation Reference Range Facility Culture, Blood (WB)on 2024 CUB Blood cultures x2, from two different sites No growth in 5 days. Normal [facility] Comment on above: Performed By: #### M 200.1000 #### [facility] [address] [place], [place], [id number] Absolute lymphocyte countOrd ered By: Jhonny Landeros on 07-01-2025 Lymphocytes Auto (Unsp spec) [#/Vol] 0.60 10*3/uL Low 0.83-4.51 [facility] Absolute neutrophil countOrd ered By: Jhonny Landeros on 07-01-2025 Neutrophils (Bld) [#/Vol] 18.5 10*3/uL High 2.0-7.7 [facility] Anion gap in Serum or Plasma Ordered By: Jhonny Landeros on 07-01-2025 Anion gap [Moles/Vol] 10 mmol/L 5-15 [facility] Automated lymphocyte count a s percentage of total leukocytesOrdered By: Jhonny Landeros on 07-01-2025 Lymphocytes/100 WBC Auto (Unsp spec) 2.9 % Low 19-41 [facility] BUN/creatinine ratioOrdered By: Jhonny Landeros on 07-01-2025 Urea nitrogen/Creatinine [Mass ratio] 13.2 mg/mg 10- [facility] Basic Metabolic Profile (BMP )on 07-01-2025 BUN/CRE 13.2 RATIO Normal - [facility] Comment on above: Performed By: #### L 509.7001, L500.2500 #### [facility] [address] [place], [place], [id number] Calcium [Mass/Vol] 9.4 mg/dL Normal 7.6-11.0 [facility] Comment on above: Performed By: #### L 509.7001, L500.2500 #### [facility] [address] [place], [address] Chloride [Moles/Vol] 97 mmol/L Low 98-[address] [facility] Comment on above: Performed By: #### L 509.7001, L500.2500 #### [facility] [address] [place], [address] CO2 [Moles/Vol] 27.6 mmol/L Normal 21.0-32.0 [facility] Comment on above: Performed By: #### L 509.7001, L500.2500 #### [facility] [address] [place], [address] Creatinine [Mass/Vol] 1.18 mg/dL Normal 0.70-1.20 [facility] Comment on above: Performed By: #### L 509.7001, L500.2500 #### [facility] [address] [place], [address] ECRCL 93.08 ml/min Normal 50-250 [facility] Comment on above: Performed By: #### L 509.7001, L500.2500 #### [facility] [address] [place], [address] GAP 10 Normal 5-15 [facility] Comment on above: Performed By: #### L 509.7001, L500.2500 #### [facility] [address] [place], [address] GFR/1.73 sq M.predicted among non-blacks MDRD (S/P/Bld) [Vol rate/Area] 73 mL/min/{1.73_m2} Normal >60 [facility] Comment on above: Result Comment: mL/m in/1.73m2 CKD-EPI Creatinine Equation (2020) Performed By: #### L 509.7001, L500.2500 #### [facility] [address] [place], [address] Glucose [Mass/Vol] 127 mg/dL High 70-99 [facility] Comment on above: Performed By: #### L 509.7001, L500.2500 #### [facility] [address] [place], [address] Potassium [Moles/Vol] 4.7 mmol/L Normal 3.3-5.1 [facility] Comment on above: Performed By: #### L 509.7001, L500.2500 #### [facility] [address] [place], [address] Sodium [Moles/Vol] 135 mmol/L Normal 133-145 [facility] Comment on above: Performed By: #### L 509.7001, L500.2500 #### [facility] [address] [place], [address] Urea nitrogen [Mass/Vol] 16 mg/dL Normal 4-19 [facility] Comment on above: Performed By: #### L 509.7001, L500.2500 #### [facility] [address] [place], [address] Basophil percentageOrdered B y: Jhonny Landeros on 07-01-2025 Basophils/100 WBC (Bld) 0.3 % 0-1 [facility] CBC W/Diff, Automatedon Absolute Lymph 0.60 X10 3/uL Low 0.83-4.51 [facility] Comment on above: Performed By: #### L 503.6005, L100.0100 #### [facility] [address] [place], [address] Absolute Neut 18.5 X10 3/uL High 2.0-7.7 [facility] Comment on above: Performed By: #### L 503.6005, L100.0100 #### [facility] [address] [place], [address] Basophils/100 WBC (Bld) 0.3 % Normal 0-1 [facility] Comment on above: Performed By: #### L 503.6005, L100.0100 #### [facility] [address] [place], [address] Eosinophils/100 WBC (Bld) 0.0 % Normal 0-5 [facility] Comment on above: Performed By: #### L 503.6005, L100.0100 #### [facility] [address] [place], [address] Erythrocyte distribution width (RBC) [Ratio] 12.9 % Normal 11.6-14.6 [facility] Comment on above: Performed By: #### L 503.6005, L100.0100 #### [facility] [address] [place], [address] Hematocrit (Bld) [Volume fraction] 47.1 % Normal 40-54 [facility] Comment on above: Performed By: #### L 503.6005, L100.0100 #### [facility] [address] [place], [address] Hemoglobin (Bld) [Mass/Vol] 16.8 g/dL High 13.0-16.5 [facility] Comment on above: Performed By: #### L 503.6005, L100.0100 #### [facility] [address] [place], [address] IG% 0.600 Normal 0.0-0.9 [facility] Comment on above: Result Comment: IG% - Immature Granulocytes (promyelocytes, myelocytes and metamyelocytes) > 1% indicates that a LEFT SHIFT is Present. Performed By: #### L 503.6005, L100.0100 #### [facility] [address] [place], [address] Lymphocytes/100 WBC (Bld) 2.9 % Low 19-41 [facility] Comment on above: Performed By: #### L 503.6005, L100.0100 #### [facility] [address] [place], [address] MCH (RBC) [Entitic mass] 32.1 pg High 27.0-32.0 [facility] Comment on above: Performed By: #### L 503.6005, L100.0100 #### [facility] [address] [place], [address] MCHC (RBC) [Mass/Vol] 35.7 g/dL Normal 32-36 [facility] Comment on above: Performed By: #### L 503.6005, L100.0100 #### [facility] [address] [place], [address] MCV (RBC) [Entitic vol] 90.1 fL Normal 80-94 [facility] Comment on above: Performed By: #### L 503.6005, L100.0100 #### [facility] [address] [place], [address] Monocytes/100 WBC (Bld) 6.3 % Normal 0-10 [facility] Comment on above: Performed By: #### L 503.6005, L100.0100 #### [facility] [address] [place], [address] Neutrophils/100 WBC (Bld) 89.9 % High 47-70 [facility] Comment on above: Performed By: #### L 503.6005, L100.0100 #### [facility] [address] [place], [address] Nucleated RBC (Bld) [#/Vol] 0 10*3/uL Normal 0-5 [facility] Comment on above: Performed By: #### L 503.6005, L100.0100 #### [facility] [address] [place], [address] Platelet mean volume (Bld) [Entitic vol] 8.3 fL Normal 6.2-12.0 [facility] Comment on above: Performed By: #### L 503.6005, L100.0100 #### [facility] [address] [place], [address] Platelets (Bld) [#/Vol] 207 10*3/uL Normal 150-450 [facility] Comment on above: Performed By: #### L 503.6005, L100.0100 #### [facility] [address] [place], [address] RBC (Bld) [#/Vol] 5.23 10*6/uL Normal 4.6-6.2 [facility] Comment on above: Performed By: #### L 503.6005, L100.0100 #### [facility] [address] [place], [address] RDW SD 42.1 fl Normal 35.1-43.9 [facility] Comment on above: Performed By: #### L 503.6005, L100.0100 #### [facility] [address] [place], [address] WBC (Bld) [#/Vol] 20.6 10*3/uL High 4.4-11.0 [facility] Comment on above: Performed By: #### L 503.6005, L100.0100 #### [facility] [address] [place], [address] Carbon dioxide, total [Moles /volume] in Central venous bloodOrdered By: Jhonny Landeros on 07-01-2025 CO2 [Moles/Vol] 27.6 mmol/L 21.0-32.0 [facility] Chloride assayOrdered By: Oralia Landeros on 07-01-2025 Chloride [Moles/Vol] 97 mmol/L Low 98-[address] [facility] Emergency Department Summary on 07-01-2025 Emergency Department Summary [facility] Medical Records Department [address] [place] [address] Emergency Department Summary 07/01/25 MR#: [id number] Acct: [id number] Name: PATSY WILSON Rep #: [id number] : 1970 55 From: Jhonny Landeros DO PCP: Care Physician,No Primary Status:REG ER Location: ED HPI History of Present Illness Chief Complaint: General Illness Informant: patient and spouse/S.O. Narrative Narrative: Patient is a 55-year-old male who reports no significant past medical history. He states he began to feel subjective fevers and chills yesterday and also noticed some redness along the lower portion of his right leg. He states that he has been building a shed and has had unintentional scrapes to his lower legs because of this. He states there is no associated abdominal pain cough shortness of breath nausea vomiting diarrhea or dysuria. He denies any past medical history. He states that he has concern for developing infection based on his symptoms and therefore comes in for evaluation [facility] Medical History (Updated 07/01/25 @ 06:[address] Jhonny Landeros DO) Tooth infection Cholecystectomy planned Home Medications ???Medication ???Instructions ???Recorded ???Last Taken ???Type hydrocodone-acetamino phen 5-325mg 1 tab PO Q6H PRN PRN Pain 3 days 04/15/25 Unknown Rx 5mg-325mg #10 TABLETS clindamycin HCl 300 mg capsule 300 mg PO 4X/DAY 10 days #40 caps 07/01/25 Unknown Rx (Cleocin HCl) Allergy/AdvReac Type Severity Reaction Status Date / Time No Known Allergies Allergy Verified 07/01/25 03:18 Family History no significant family his Surgical History (Updated 07/01/25 @ 03:19 by Orlando Walton) Hx of cholecystectomy Social History Smoking Status: Current every day smoker tobacco type: cigarettes ROS ROS ED Constitutional Constitutional ED: Reports chills, fever(s) and subjective ENT ENT ED: Denies rhinorrhea or sore throat Cardiovascular Cardiovascular: Denies chest pain Respiratory/Chest Respiratory/Chest: Denies cough or dyspnea Gastrointestinal Gastrointestinal: Denies abdominal pain, diarrhea, nausea or vomiting Genitourinary Genitourinary ED: Denies dysuria Musculoskeletal Musculoskeletal: Reports other Details: Positive right leg pain ; Denies myalgias Integumentary Reports Abrasions and other Details: Positive redness right lower leg Neurologic Neurologic: Denies headache(s) Hematologic/Lymphatic Hematologic/Lymphatic : Denies easy bleeding or easy bruising EXAM Physical Exam Const Vital Signs: 07/01/25 03:18 07/01/25 03:18 07/01/25 03:22 Temperature 99.8 F H 99.8 F H Temperature Source Oral Oral Pulse Rate 100 100 Respiratory Rate 19 H 22 H Respiratory Effort Normal Respiratory Pattern Normal Blood Pressure 205/97 H 205/97 H Blood Pressure Mean 133 133 Pulse Ox 97 99 Oxygen Delivery Method Room Air Room Air 07/01/25 04:22 07/01/25 04:59 Temperature 99.6 F H 98.9 F Temperature Source Oral Oral Pulse Rate 94 93 Respiratory Rate 22 H 20 H Respiratory Effort Respiratory Pattern Blood Pressure 180/90 H 172/89 H Blood Pressure Mean 120 116 Pulse Ox 97 98 Oxygen Delivery Method Room Air Room Air Positive well nourished, well developed and obese General Appearance ED: well developed Nutritional Appearance: obese HEENT HEENT Narrative: Normocephalic atraumatic No tongue or lip swelling no oral lesions no airway edema or compromise; no secondary findings in the posterior pharynx to suggest infection Eyes PERRL and EOMs intact bilaterally General Eye ED: Negative for scleral icterus Neck supple Neck Narrative: No nuchal rigidity or meningeal signs noted Resp normal respiratory effort and clear to auscultation bilaterally Resp Narrative: No nasal flaring retractions tachypnea or accessory muscle use Breath sounds are overall clear to auscultation without signs of respiratory distress Cardio regular rate and regular rhythm GI normal to inspection, nondistended, normoactive bowel sounds, non-tender, non-distended and no masses GI Narrative: No voluntary guarding or rigidity or pulsatile mass Auscultation: normoactive bowel sounds Palpation: soft Back/Spine no CVA tenderness Extremity Extremity Narrative: Right lower extremity is neurovascularly intact Patient has multiple superficial abrasions to the right leg; along the posterior aspect of the right leg starting just above the ankle and tracking to the mid calf is asymmetric erythema and warm. No obvious abscess formation noted. No crepitance palpated. No lymphangitic streaking. All compartments are soft and compressible going against compartment syndrome Neuro oriented x3, CN's (more content not included)... Normal [facility] Eosinophil percentageOrdered By: Jhonny Landeros on 07-01-2025 Eosinophils/100 WBC (Bld) 0.0 % 0-5 [facility] Erythrocyte distribution wid th ratioOrdered By: Jhonny Landeros on 07-01-2025 Erythrocyte distribution width (RBC) [Ratio] 12.9 % 11.6-14.6 [facility] Erythrocyte distribution wid th standard deviationOrdered By: Jhonny Landeros on 07-01-2025 Erythrocyte distribution width (RBC) [Ratio] 42.1 fl 35.1-43.9 [facility] Glomerular filtration rate ( GFR) estimation/1.73 sq m using serum, plasma, or whole bOrdered By: Jhonny Landeros on 07-01-2025 GFR/1.73 sq M.predicted among non-blacks MDRD (S/P/Bld) [Vol rate/Area] 73 mL/min/{1.73_m2} >60 [facility] Comment on above: mL/min/1.73m2 CKD-EP I Creatinine Equation (2020) Hematocrit Auto (Bld) [Volum e fraction]Ordered By: Jhonny Landeros on 07-01-2025 Hematocrit (Bld) [Volume fraction] 47.1 % 40-54 [facility] Hemoglobin measurementOrdere d By: Jhonny Landeros on 07-01-2025 Hemoglobin (Bld) [Mass/Vol] 16.8 g/dL High 13.0-16.5 [facility] Immature granulocytes/100 WB C Auto (Bld)Ordered By: Jhonny Landeros on 07-01-2025 Immature granulocytes/100 WBC (Bld) 0.600 % 0.0-0.9 [facility] Comment on above: IG% - Immature Granu locytes (promyelocytes, myelocytes and metamyelocytes) > 1% indicates that a LEFT SHIFT is Present. L509.7001on 07-01-2025 Procalcitonin 0.52 ng/mL High <=0.10 [facility] Comment on above: Result Comment: Inte rpretation: <0.10-0.25 ng/mL: Antibiotic therapy discouraged. Bacterial infection unlikely. 0.25-0.50 ng/mL: Antibiotic therapy encouraged. Bacterial infection possible. >0.50 ng/mL: Antibiotic therapy strongly encouraged. Suggestive of presence of bacterial infection. PCT should always be interpreted in the clinical context of the patient. Therefore, clinicians should use the PCT results in conjunction with other laboratory findings and clinical signs of the patient. Performed By: #### L 509.7001, L500.2500 #### [facility] [address] [facility], [address] Lactic Acidon 07-01-2025 Lactate [Moles/Vol] 1.2 mmol/L Normal 0.0-2.0 [facility] Comment on above: Order Comment: Y Performed By: #### L 503.6005, L100.0100 #### [facility] [address] [facility], [address] Lactic acid measurementOrder ed By: Jhonny Landeros on 07-01-2025 Lactate [Moles/Vol] 1.2 mmol/L 0.0-2.0 [facility] MCV (mean corpuscular volume ) determinationOrdered By: Jhonny Landeros on 07-01-2025 MCV (RBC) [Entitic vol] 90.1 fL 80-94 [facility] Mean corpuscular hemoglobin (MCH) determinationOrdered By: Jhonny Landeros on 07-01-2025 MCH (RBC) [Entitic mass] 32.1 pg High 27.0-32.0 [facility] Mean corpuscular hemoglobin concentration (MCHC) determinationOrdered By: Jhonny Landeros on 07-01-2025 MCHC (RBC) [Mass/Vol] 35.7 g/dL 32-36 [facility] Mean platelet volume determi nationOrdered By: Jhonny Ladneros on 07-01-2025 Platelet mean volume (Bld) [Entitic vol] 8.3 fL 6.2-12.0 [facility] Monocyte percentageOrdered B y: Jhonny Landeros on 07-01-2025 Monocytes/100 WBC (Bld) 6.3 % 0-10 [facility] Neutrophil percentageOrdered By: Jhonny Landeros on 07-01-2025 Neutrophils/100 WBC (Bld) 89.9 % High 47-70 [facility] Nucleated red blood cell per centageOrdered By: Jhonny Landeros on 07-01-2025 Nucleated RBC/100 WBC (Bld) [Ratio] 0 % 0-5 [facility] Platelet countOrdered By: Oralia Landeros on 07-01-2025 Platelets (Bld) [#/Vol] 207 10*3/uL 150-450 [facility] Potassium measurement (mass/ volume)Ordered By: Jhonny Landeros on 07-01-2025 Potassium (Unsp spec) [Mass/Vol] 4.7 mmol/L 3.3-5.1 [facility] Procalcitonin [Mass/volume] in Serum or Plasma by ImmunoassayOrdered By: Jhonny Landeros on 07-01-2025 Procalcitonin IA [Mass/Vol] 0.52 ng/mL High <0.11 [facility] Comment on above: Interpretation:<0.10 -0.25 ng/mL: Antibiotic therapy discouraged. Bacterial infection unlikely.0.25-0.50 ng/mL: Antibiotic therapy encouraged. Bacterial infection possible.>0.50 ng/mL: Antibiotic therapy strongly encouraged. Suggestive of presence of bacterial infection.PCT should always be interpreted in the clinical context of the patient. Therefore, clinicians should use the PCT results in conjunction with other laboratory findings and clinical signs of the patient. RBC Auto (Bld) [#/Vol]Ordere d By: Jhonny Landeros on 07-01-2025 RBC (Bld) [#/Vol] 5.23 10*6/uL 4.6-6.2 [facility] Serum creatinine measurement (mass/volume)Ordered By: Jhonny Landeros on 07-01-2025 Creatinine [Mass/Vol] 1.18 mg/dL 0.70-1.20 [facility] Serum glucose measurement (m ass/volume)Ordered By: Jhonny Landeros on 07-01-2025 Glucose [Mass/Vol] 127 mg/dL High 70-99 [facility] Serum or plasma calcium dorinda urement (mass/volume)Ordered By: Jhonny Landeros on 07-01-2025 Calcium [Mass/Vol] 9.4 mg/dL 7.6-11.0 [facility] Serum or plasma urea nitroge n measurement (mass/volume)Ordered By: Jhonny Landeros on 07-01-2025 Urea nitrogen [Mass/Vol] 16 mg/dL 4-19 [facility] Sodium levelOrdered By: Julian Landeros on 07-01-2025 Sodium [Moles/Vol] 135 mmol/L 133-145 [facility] Tibia Fibula 2 Viewson 07-01 Tibia Fibula 2 Views [facility] Imaging Services [address] [place] [address] Tibia Fibula 2 Views MR#: [id number] Acct: [id number] Name: PATSY WILSON Rep #: [id number] : 1970 M 55 From: Bartolo Pittman MD PCP: Care Physician,No Primary Status: [facility] ER Study: Tibia Fibula 2 Views Date of Exam: 07/01/25 Exam# [id number] Ordering Dr: Jhonny Landeros DO PROCEDURE: TIBIA FIBULA 2 VIEWS 07/01/2025 REASON FOR EXAM: ? OSTEO TECHNIQUE: 1 view(s) of the pelvis. COMPARISON: None available. FINDINGS: Hardware: None Bones: No acute fractures or dislocations. Joints: Normal alignment at the hips and sacroiliac joints. soft tissues: Soft tissues are unremarkable. Other: No cortical destruction to suggest osteomyelitis. RAD/Tibia Fibula 2 Views IMPRESSION: No acute fractures or dislocations. Reading [facility] CC: Jhonny Landeros DO; No Primary Care Physician [employer] Cook: Signed Normal [facility] White blood cell (WBC) count Ordered By: Jhonny Landeros on 07-01-2025 WBC (Bld) [#/Vol] 20.6 10*3/uL High 4.4-11.0 [facility] Emergency Department Summary on 04-15-2025 Emergency Department Summary [facility] Medical Records Department [address] [place] [address] Emergency Department Summary 04/15/25 MR#: [id number] Acct: [id number] Name: PATSY WILSON Rep #: [id number] : 1970 55 From: Porfirio Perez MD [...] symptoms: No Recent Illness/Hospitalizati on: No PFSH PFS Medical History Cholecystectomy planned Home Medications ???Medication ???Instructions ???Recorded ???Last Taken ???Type multivitamin (Daily Multi-Vitamin 1 tab PO DAILY 10/01/24 Unknown H istory tablet) omega 5-rpy-vbw-fish oil 60 mg-90 1 cap PO DAILY [...] Also recommend that he follow-up at the [facility] to have blood pressure rechecked in 1 week. This was not treated because he had a normal blood pressure recently a (more content not included)... Normal [facility] Cerv Spine 4 or 5 Viewson Cerv Spine 4 or 5 Views [facility] Imaging Services [address] [place] [address] Cerv Spine 4 or 5 Views MR#: [id number] Acct: [id number] Name: PATSY WILSON Rep #: [id number] : 1970 M 54 From: Samy salas DO PCP: Care Physician,No Primary Status: REG CLI Study: Cerv Spine 4 or 5 Views Date of Exam: 10/02/24 Exam# [id number] Ordering Dr: Bryanna Sahu [id number] EXAM: XR CERVICAL SPINE, 4 OR 5 [...] Small DO at 20:28 EST , CC: DC Dr. Bryanna Sahu; No Primary Care Physician [employer] Cook: Signed Normal [facility] Emergency Department Summary on 10-01-2024 Emergency Department Summary [facility] Medical Records Department [address] [place] [address] Emergency Department Summary 10/01/24 MR#: [id number] Acct: [id number] Name: PATSY WILSON Rep #: [id number] : 1970 54 From: Jhonny Landeros DO [...] symptoms have worsened he presents for evaluation. [facility] Medical History Cholecystectomy planned Home Medications ???Medication ???Instructions ???Recorded ???Last Taken ???Type multivitamin (Daily Multi-Vitamin 1 tab PO DAILY 10/01/24 Unknown History tablet) omega 6-utx-qvd-fish oil 60 mg-90 1 cap PO DAILY [...] mouth an (more content not included)... Normal [facility] Absolute lymphocyte countOrd ered By: Angela Tankaleigh on 08-10-2023 Lymphocytes Auto (Unsp spec) [#/Vol] 1.82 10*3/uL 0.83-4.51 [facility] Basophil percentageOrdered B y: Angela Eduardo on 08-10-2023 Basophils/100 WBC (Bld) 0.2 % 0-1 [facility] Chloride [Moles/Vol] 108 mmol/L 98-[address] [facility] Eosinophils/100 WBC (Bld) 0.5 % 0-5 [facility] Glucose [Mass/Vol] 131 mg/dL 74-106 [facility] Comment on above: Fasting Glucose resu lt greater than or equal to 126 mg/dL suggests DIABETES MELLITUS per A.D.A. criteria. Lactate [Moles/Vol] 1.2 mmol/L 0.4-2.0 [facility] Neutrophils (Bld) [#/Vol] 9.5 10*3/uL 2.0-7.7 [facility] Neutrophils/100 WBC (Bld) 73.2 % 47-70 [facility] Potassium [Moles/Vol] 3.7 mmol/L 3.5-5.1 [facility] Sodium [Moles/Vol] 141 mmol/L 136-145 [facility] WBC (Bld) [#/Vol] 12.9 10*3/uL 4.4-11.0 [facility] Blood erythrocytes count (nu mber/volume)Ordered By: Angela Clark on 08-10-2023 RBC (Bld) [#/Vol] 4.93 10*6/uL 4.6-6.2 [facility] Blood hemoglobin measurement (mass/volume)Ordered By: Angela Clark on 08-10-2023 Hemoglobin (Bld) [Mass/Vol] 15.5 g/dL 13.0-16.5 [facility] Blood lymphocytes/100 leukoc ytesOrdered By: Angela Clark on 08-10-2023 Lymphocytes/100 WBC (Bld) 14.1 % 19-41 [facility] Blood monocytes/100 leukocyt esOrdered By: Angela Clark on 08-10-2023 Monocytes/100 WBC (Bld) 11.6 % 0-10 [facility] Blood platelet mean volumeOr dered By: Angela Clark on 08-10-2023 Platelet mean volume (Bld) [Entitic vol] 8.3 fL 6.2-12.0 [facility] Determination of erythrocyte mean corpuscular volume (MCV)Ordered By: Angela Clark on 08-10-2023 MCV (RBC) [Entitic vol] 93.1 fL 80-94 [facility] Hematocrit Auto (Bld) [Volum e fraction]Ordered By: Angela Clark on 08-10-2023 Hematocrit (Bld) [Volume fraction] 45.9 % 40-54 [facility] Laboratory - Chemistry and C hemistry - challengeOrdered By: Angela Clark on 08-10-2023 CO2 [Moles/Vol] 27.0 mmol/L 21.0-32.0 [facility] Urea nitrogen/Creatinine [Mass ratio] 10.1 mg/mg 10-20 [facility] - Hematology and Cell countsOrdered By: [facility] Clark on 08-10-2023 Erythrocyte distribution width (RBC) [Entitic vol] 44.5 fL 35.1-43.9 [facility] Erythrocyte distribution width (RBC) [Ratio] 13.1 % 11.6-14.6 [facility] Immature granulocytes/100 WBC (Bld) 0.400 % 0.0-0.9 [facility] Comment on above: IG% - Immature Granu locytes (promyelocytes, myelocytes and metamyelocytes) > 1% indicates that a LEFT SHIFT is Present. MCH (RBC) [Entitic mass] 31.4 pg 27.0-32.0 [facility] Nucleated RBC/100 WBC (Bld) [Ratio] 0 % 0-5 [facility] MCHC Auto (RBC) [Mass/Vol]Or dered By: Angela Clark on 08-10-2023 MCHC (RBC) [Mass/Vol] 33.8 g/dL 32-36 [facility] No Panel InformationOrdered By: Angela Tankaleigh on 08-10-2023 Estimated Creatinine Clearance Calc 72.69 ml/min [facility] Estimated GFR (MDRD) Amer 75 mL/min >60 [facility] Estimated GFR (MDRD) Non-Af Amer 62 mL/min >60 [facility] Platelets bldOrdered By: Ignacia Clark on 08-10-2023 Platelets (Bld) [#/Vol] 215 10*3/uL 150-450 [facility] Serum or plasma calcium dorinda urement (mass/volume)Ordered By: Angela Tankaleigh on 08-10-2023 Calcium [Mass/Vol] 8.6 mg/dL 8.5-10.1 [facility] Serum or plasma creatinine m easurement (mass/volume)Ordered By: Angela Clark on 08-10-2023 Creatinine [Mass/Vol] 1.29 mg/dL 0.70-1.30 [facility] Comment on above: The validity of the calculated GFR & GFRAA in patients over 70 years has not been determined. Clinical correlation is essential. Serum or plasma urea nitroge n measurement (mass/volume)Ordered By: Angela Clark on 08-10-2023 Urea nitrogen [Mass/Vol] 13 mg/dL 7-18 [facility] Thin prep Papanicolaou smear with manual screeningOrdered By: Angela Clark on 08-10-2023 Thin prep Papanicolaou smear with manual screening 6 5-15 [facility] SPINE, CERVICAL MIN 4 VIEWSo n 03-25-2022 SPINE, CERVICAL MIN 4 VIEWS Patient Name: PATSY WILSON STUDY: SPINE, CERVICAL MIN 4 VIEWS; 03/25/2022 4:16 pm INDICATION: M54.2. COMPARISON: None. ACCESSION NUMBER(S): [id number] ORDERING CLINICIAN: BRYANNA SAHU FINDINGS: C-spine, five [...] well Electronically signed by: VITA MILLAN MD [facility] CERVICAL WITH OBLIQUESon CERVICAL WITH [...] Degenerative disc changes C5-C6 and C6-C7. Normal [facility] Vital Signs Date Time Vital Sign Value Performing Clinician Faci lity 07-01-2025 06:59-0400 Diastolic blood pressure 80 mm[Hg] No Primary Care Physician [facility] 07-01-2025 06:59-0400 Heart rate 80 /min No Primary Care Physician [facility] 07-01-2025 06:59-0400 Respiratory rate 19 /min No Primary Care Physician [facility] 07-01-2025 06:59-0400 SaO2% (BldA) [Mass fraction] 97 % No Primary Care Physician [facility] 07-01-2025 06:59-0400 Systolic blood pressure 185 mm[Hg] No Primary Care Physician [facility] 07-01-2025 06:38-0400 Body temperature 98.9 [degF] No Primary Care Physician [facility] 07-01-2025 03:18-0400 Body height 182.88 cm No Primary Care Physician [facility] 07-01-2025 03:18-0400 Body mass index (BMI) [Ratio] 34.7 kg/m2 No Primary Care Physician [facility] 07-01-2025 03:18-0400 Body weight 116.2 kg No Primary Care Physician [facility] 04-15-2025 11:51-0400 Body height 182.88 cm No Primary Care Physician [facility] 04-15-2025 11:51-0400 Body mass index (BMI) [Ratio] 32.6 kg/m2 No Primary Care Physician [facility] 04-15-2025 11:51-0400 Body temperature 96.1 [degF] No Primary Care Physician [facility] 04-15-2025 11:51-0400 Body weight 109.31 kg No Primary Care Physician [facility] 04-15-2025 11:51-0400 Diastolic blood pressure 103 mm[Hg] No Primary Care Physician [facility] 04-15-2025 11:51-0400 Heart rate 85 /min No Primary Care Physician [facility] 04-15-2025 11:51-0400 Respiratory rate 16 /min No Primary Care Physician [facility] 04-15-2025 11:51-0400 SaO2% (BldA) [Mass fraction] 96 % No Primary Care Physician [facility] 04-15-2025 11:51-0400 Systolic blood pressure 182 mm[Hg] No Primary Care Physician [facility] 08-10-2023 06:55-0400 Diastolic blood pressure 75 mm[Hg] [facility] 08-10-2023 06:55-0400 Heart rate 80 /min [facility] 08-10-2023 06:55-0400 Respiratory rate 19 /min [facility] 08-10-2023 06:55-0400 SaO2% (BldA) [Mass fraction] 95 % [facility] 08-10-2023 06:55-0400 Systolic blood pressure 178 mm[Hg] [facility] 08-10-2023 00:44-0400 Body height 182.88 cm [facility] 08-10-2023 00:44-0400 Body mass index (BMI) [Ratio] 34.9 kg/m2 [facility] 08-10-2023 00:44-0400 Body temperature 97.9 [degF] [facility] 08-10-2023 00:44-0400 Body weight 117.02 kg [facility] 02-04-2023 03:08-0400 Body height 182.88 cm [facility] 02-04-2023 03:08-0400 Body mass index (BMI) [Ratio] 34.6 kg/m2 [facility] 02-04-2023 03:08-0400 Body temperature 97.8 [degF] [facility] 02-04-2023 03:08-0400 Body weight 115.8 kg [facility] 02-04-2023 03:08-0400 Diastolic blood pressure 86 mm[Hg] [facility] 02-04-2023 03:08-0400 Heart rate 92 /min [facility] 02-04-2023 03:08-0400 Respiratory rate 15 /min [facility] 02-04-2023 03:08-0400 SaO2% (BldA) [Mass fraction] 95 % [facility] 02-04-2023 03:08-0400 Systolic blood pressure 175 mm[Hg] [facility] Encounters Encounter Date Encounter Type Care Provider Facility Start: 07-01-2025 End: 07-01-2025 Emergency department patient visit No Primary Care Physician -Emergency Department Work Phone: Start: 04-15-2025 End: 04-15-2025 Emergency department patient visit No Primary Care Physician -Emergency Department Work Phone: Start: 10-02-2024 End: 10-02-2024 ambulatory No Primary Care Physician Facility:[facility] Start: 10-01-2024 End: 10-01-2024 Emergency department patient visit [facility] Facility:[facility] Start: 08-10-2023 End: 08-10-2023 Emergency department patient visit [facility]-Emergency Department Work Phone: Start: 02-04-2023 End: 02-04-2023 Emergency department patient visit [facility]Emergency Department Start: 09-28-2019 Patient encounter procedure KEVIN GAMBOA Facility:[facility] Start: 07-13-2019 End: 07-14-2019 Patient encounter procedure BRYANNA SAHU Facility:[facility] Procedures Date Procedure Procedure Detail Performing Clinician Start: 07-01-2025 Plain X-ray of tibia and fibula No Primary Care Physician Start: 07-01-2025 Estimated creatinine clearance No Primary Care Physician Start: 08-10-2023 CT of soft tissues o f neck with contrast Plan of Treatment Date Care Activity Detail Author Start: 07-01-2025 Bacteria identified in Blood by Culture Blood Culture [facility] Start: 07-01-2025 [facility] Start: 07-01-2025 [facility] Start: 07-01-2025 Following clinical p athway protocol [facility] Start: 04-15-2025 [facility] Start: 08-10-2023 [facility] Start: 08-10-2023 [facility] Patient Education [facility] Work Phone: Patient referral [facility] Work Phone: Payers Date Payer Category Payer Unknown [id number] 1970 Unknown [id number] [id number] 1970 Unknown [id number] 2.16.8 [id number] 1959 Self-pay NONE 1959 Self-pay Unknown [facility] [id number] Unknown [id number] Unknown [id number] [id number] [id number] Unknown [id number] 2.16.8 [id number] Unknown [id number] 2.16.8 [id number] Unknown [id number] 2.16.8 [id number] Social History Date Type Detail Facility Start: 02-04-2023 End: 08-10-2023 Tobacco smoking status NHIS Unknown if ever smoked [facility] Start: 1970 Sex Assigned At Male [facility] Start: 04-15-2025 End: 07-01-2025 Tobacco smoking status NHIS Smokes tobacco daily (finding) [facility] Mental Status Date Assessment Result Facility 07-01-2025 Cognitive function Level Of Cons ciousness Awake;Alert;Appropriate;Follow s Commands [facility] Work Phone: Discharge summary 07-01-2025 Note Date & Type Note Facility 07-01-2025 Discharge summary [facility] Radiology Diagnostic study note 07-01-2025 Note Date & Type Note Facility 07-01-2025 Radiology Diagnostic study note [facility] Imaging Services [address] [place] [address] Tibia & Fibula 2 Views MR#: [id number] Acct: [id number] Name: PATSY WILSON Rep #: [id number] : 1970 M 55 From: Bartolo Pittman MD PCP: Care Physician,No Primary Status: REG ER Study:Tibia & Fibula 2 Views Date of Exam: 07/01/25 Exam# [id number] Ordering Dr: Oralia Landeros DO PROCEDURE: TIBIA FIBULA 2 VIEWS 07/01/2025 REASON FOR EXAM: ? OSTEO TECHNIQUE: 1 view(s) of the pelvis. COMPARISON: None available. FINDINGS: Hardware: None Bones: No acute fractures or dislocations. Joints: Normal alignment at the hips and sacroiliac joints. soft tissues: Soft tissues are unremarkable. Other: No cortical destruction to suggest osteomyelitis. RAD/Tibia & Fibula 2 Views IMPRESSION: No acute fractures or dislocations. Reading [facility] CC: Jhonny Landeros DO; No Primary Care Physician ~ [employer] Cook: Signed [facility] Discharge instructions 07-01-2025 Note Date & Type Note Facility 07-01-2025 Hospital Discharg e instructions Additional Instructions Your history and exam is concerning/consistent with cellulitis. This is a soft tissue infection. Please take the antibiotic as directed to help resolve this. It would typically take 2 to 3 days for the antibiotic to take effect. If the redness continues to spread despite taking the antibiotic, you notice streaking up the leg, or you develop a persistent fever or feel your symptoms are worsening in any way it could indicate that you may need prolonged IV antibiotics and therefore please return to the ER for repeat evaluation [facility] Work Phone: Discharge summary 04-15-2025 Note Date & Type Note Facility 04-15-2025 Discharge summary [facility] Discharge summary 08-10-2023 Note Date & Type Note Facility 08-10-2023 Discharge summary Note Date/Time August 10, 2023 2:17am [facility] Medical Records Department [address] [place] [address] Emergency Department Summary 08/10/23 MR#: [id number] Acct: [id number] Name: PATSY WILSON Rep #:[id number] : [...] maxillofacial availability. We attempted multiple hospitals including [facility] in [facility] as well as [facility] and there were no beds available at these facilities. We contacted [facility] in [place] who I was told had bed availability and discussed case with Dr. Lomas who accepted transfer of patient to their facility. Patient reassessment at 5:30 AM. Patient resting comfortably. He has no respiratory distress. Awaiting bed at [facility]. Lab Data Attestation: I reviewed the [...] 73.2 H Lymph % (Auto) 14.1 L Lyon % (Auto) 11.6 H Eos % (Auto) [...] your Primary Care Provider. Call [facility] ([phone]) or report to the closest Emergency Room. Call 911 if necessary. 08/10/23 0736 <Electronically signed by Angela Clark DO> Cosigner Signature (if applicable): CC: No Primary Care Physician ~ Signed [facility] Work Phone: Discharge summary Note Date & Type Note Facility Discharge summary Note Date/Time February 04, 2023 4:03am [facility] Medical Records Department [address] [place] [address] Emergency Department Summary 02/04/23 MR#: [id number] Acct: [id number] Name: PATSY WILSON Rep #:[id number] : [...] it could be poison lex/poison sumac/poison oak. PFSH PFSH Medical History Cholecystectomy planned Home Medications prednisone [...] Orders Instructions: ED Poison Lex or Poison Norwell Rash Prescriptions: New prednisone 10 mg tablet 10 mg PO DAILY Qty: 63 0RF Rx Instructions: 60 mg p.o. daily ?3 days, 50 mg p.o. daily ?3 days, 40 mg p.o. daily ?3 days,30 mg p.o. daily ?3 days, 20 mg p.o. daily ?3 days, 10 mg p.o. daily ?3 days. Primary Care Provider: Care Physician,No [facility] - 3-5 Days Care Physician,No Primary [Primary Care Provider] - Disposition Disposition: Home, Self Care What to do if you have Problems For any increased pain, shortness of breath, bleeding, nausea or vomiting, chestpain, or any unexpected problems, contact your Primary Care Provider. Call [facility] ([phone]) or report to the closest Emergency Room. Call 911 if necessary. 02/04/23 0403 <Electronically signed by Jin Grullon DO> Cosigner Signature (if applicable): CC: No Primary Care Physician ~ Signed [facility] Work Phone: Discharge summary Note Date & Type Note Facility Discharge summary Note Date/Time April 15, 2025 12:21pm [facility] Medical Records Department [address] [place] [address] Emergency Department Summary 04/15/25 MR#: [id number] Acct: [id number] Name: PATSY WILSON Rep #:[id number] : [...] PO DAILY 10/01 Unknown History tablet) omega 0-xbv-qqt-fish oil 60 mg-90 1 cap PO DAILY [...] sheet. Also recommendthat he follow-up at the [facility] to have blood pressure rechecked in 1 [...] Multi-Vitamin] Tablet 1 tab PO DAILY omega 1-bwh-cnc-fish oil [Fish Oil] 60-90-500 mg capsule 1 [...] Care Provider: Care Physician,No Primary [facility] - 1-2 Weeks Care Physician,No Primary [Primary Care Provider] - Print Language: Indian Disposition Disposition: Home, Self Care What to do if you have Problems For any increased pain, shortness of breath, bleeding, nausea or vomiting, chestpain, or any unexpected problems, contact your Primary Care Provider. Call [facility] ([phone]) or report to the closest Emergency Room. Call 911 if necessary. 04/15/25 1221 <Electronically signed by Porfirio Perez MD> Cosigner Signature (if applicable): CC: No Primary Care Physician ~ Signed [facility] Work Phone: Discharge summary Note Date & Type Note Facility Discharge summary Note Date/Time July 01, 2025 6:49am [facility] Medical Records Department [address] [place] [address] Emergency Department Summary 07/01/25 MR#: [id number] Acct: [id number] Name: PATSY WILSON Rep #:[id number] : 1970 55 From: Jhonny Landeros DO PCP: Care Physician,No Primary Status :REG ER Location: ED HPI History of Present Illness Chief Complaint: General Illness Informant: patient and spouse/S.O. Narrative Narrative: Patient is a 55-year-old male who reports no significant past medical history. He states he began to feel subjective fevers and chills yesterday and also noticed some redness along the lower portion of his right leg. He states that he has been building a shed and has had unintentional scrapes to his lower legs because of this. He states there is no associated abdominal pain cough shortness of breath nausea vomiting diarrhea or dysuria. He denies any past medical history. He states that he has concern for developing infection based on his symptoms and therefore comes in for evaluation [facility] Medical History (Updated 07/01/25 @ 06:[address] Jhonny Landeros DO) Tooth infection Cholecystectomy planned Home Medications ?Medication ?Instructions ?Recorded ?Last Taken ?Type hydrocodone-acetaminophen 5-325mg 1 tab PO Q6H PRN PRN Pain 3 days 04/15/25 Unknown Rx 5mg-325mg #10 TABLETS clindamycin HCl 300 mg capsule 300 mg PO 4X/DAY 10 day s #40 caps 07/01/25 Unknown Rx (Cleocin HCl) Allergy/AdvReac Type Severity Reaction Status Date / Time No Known Allergies Allergy Verified 07/01/25 03:18 Family History no significant family his Surgical History (Updated 07/01/25 @ 03:19 by Orlando Walton) Hx of cholecystectomy Social History Smoking Status: Current every day smoker tobacco type: cigarettes ROS ROS ED Constitutional Constitutional ED: Reports chills, fever(s) and subjective ENT ENT ED: Denies rhinorrhea or sore throat Cardiovascular Cardiovascular: Denies chest pain Respiratory/Chest Respiratory/Chest: Denies cough or dyspnea Gastrointestinal Gastrointestinal: Denies abdominal pain, diarrhea, nausea or vomiting Genitourinary Genitourinary ED: Denies dysuria Musculoskeletal Musculoskeletal: Reports other Details: Positive right leg pain ; Denies myalgias Integumentary Reports Abrasions and other Details: Positive redness right lower leg Neurologic Neurologic: Denies headache(s) Hematologic/Lymphatic Hematologic/Lymphatic: Denies easy bleeding or easy bruising EXAM Physical Exam Const Vital Signs: 07/01/25 03:18 07/01/25 03:18 07/01/25 03:22 Temperature 99.8 F H 99.8 F H Temperature Source Oral Oral Pulse Rate 100 100 Respiratory Rate 19 H 22 H Respiratory Effort Normal Respiratory Pattern Normal Blood Pressure 205/97 H 205/97 H Blood Pressure Mean 133 133 Pulse Ox 97 99 Oxygen Delivery Method Room Air Room Air 07/01/25 04:22 07/01/25 04:59 Temperature 99.6 F H 98.9 F Temperature Source Oral Oral Pulse Rate 94 93 Respiratory Rate 22 H 20 H Respiratory Effort Respiratory Pattern Blood Pressure 180/90 H 172/89 H Blood Pressure Mean 120 116 Pulse Ox 97 98 Oxygen Delivery Method Room Air Room Air Positive well nourished, well developed and obese General Appearance ED: well developed Nutritional Appearance: obese HEENT HEENT Narrative: Normocephalic atraumatic No tongue or lip swelling no oral lesions no airway edema or compromise; no secondary findings in the posterior pharynx to suggest infection Eyes PERRL and EOMs intact bilaterally General Eye ED: Negative for scleral icterus Neck supple Neck Narrative: No nuchal rigidity or meningeal signs noted Resp normal respiratory effort and clear to auscultation bilaterally Resp Narrative: No nasal flaring retractions tachypnea or accessory muscle use Breath sounds are overall clear to auscultation without signs of respiratory distress Cardio regular rate and regular rhythm GI normal to inspection, nondistended, normoactive bowel sounds, non-tender, non-distended and no masses GI Narrative: No voluntary guarding or rigidity or pulsatile mass Auscultation: normoactive bowel sounds Palpation: soft Back/Spine no CVA tenderness Extremity Extremity Narrative: Right lower extremity is neurovascularly intact Patient has multiple superficial abrasions to the right leg; along the posterioraspect of the right leg starting just above the ankle and tracking to the mid calf is asymmetric erythema and warm. No obvious abscess formation noted. No crepitance palpated. No lymphangitic streaking. All compartments are soft and compressible going against compartment syndrome Neuro oriented x3, CN's II-XII intact bilaterally and no sensory deficits noted Sensorium / Orientation: alert Motor Exam: strength 5/5 throughout Psych mental status grossly normal Skin Skin Narrative: Soft tissue changes to the right lower leg as documented above MDM MDM MDM Narrative Medical decision making narrative: Patient arrived to the ER hypertensive and with low-grade fever. With his report of subjective fevers and chills and leg pain as well as exam showing redness there is concern for cellulitis versus osteomyelitis versus early abscess. The patient denies congestion and cough going against pneumonia or viral URI and he does not endorse belly pain nausea vomiting diarrhea going against abdominal infection such as norovirus or rotavirus. At this time with the most likely diagnosis being cellulitis from inadvertent injury to the right lower leg while he was building his shed basic blood work will be obtained as well as a x-ray to rule out osteomyelitis or retained foreign body. White bloodcell count is elevated at 21 and his neutrophil count is elevated at 19. Despite these high elevations his lactic acid is normal at 1.2 and the procalcitonin is just barely elevated at 0.5. X-ray revealed no sign of retained foreign body gas producing infection/free air or osteomyelitis. With concern for systemic infection blood cultures were obtained and he was started on vancomycin and Zosyn. I discussed with patient potential for admission basedon his high white blood cell count and low-grade fever. He states that he does not want to be admitted to the hospital. At this time he is not hypotensive histemperature was truly not febrile as it was under 100.4 and as his lactic acid is normal concern for tissue necrosis or systemic infection is also low. I informed patient that there is a possibility that his symptoms will worsen despite antibiotics or that his blood cultures will result positive which could necessitate return for IV therapy and admission. He also understands that even though he will be prescribed antibiotics that there is a chance that his infection could worsen and by the time he returns to the ER there may be significant adverse outcomes such as permanent disability loss of limb or even . He states he is feeling much better at this time and would prefer to still take oral antibiotics at home and return if his cultures are positive or if symptoms are worsening. He is awake alert and oriented and competent to makethis decision. Therefore I will start him on clindamycin secondary to cellulitis and will discharge the patient home as requested History & Record Review Discussion w/independent historian: Patient Lab Data Attestation: I reviewed the patient's lab results. Labs: Laboratory Results - last 24 hr 07/01/25 03:37 WBC 20.6 H RBC 5.23 Hgb 16.8 H Hct 47.1 MCV 90.1 MCH 32.1 H MCHC 35.7 RDW Std Deviation 42.1 RDW Coeff of Tony 12.9 Plt Count 207 MPV 8.3 Immature Gran % (Auto) 0.600 Neut % (Auto) 89.9 H Lymph % (Auto) 2.9 L Lyon % (Auto) 6.3 Eos % (Auto) 0.0 Baso % (Auto) 0.3 Absolute Neuts (auto) 18.5 H Absolute Lymphs (auto) 0.60 L Nucleated RBC % 0 Sodium 135 Potassium 4.7 Chloride 97 L Carbon Dioxide 27.6 Anion Gap 10 BUN 16 Creatinine 1.18 Estim Creat Clear Calc 93.08 Est GFR (MDRD) Non-Af 73 BUN/Creatinine Ratio 13.2 Glucose 127 H Lactic Acid 1.2 Calcium 9.4 Procalcitonin 0.52 H Radiography Diagnostic Testing: Clinical Impression(s) from Imaging Studies Tibia/Fibula X-Ray 07/01/25 03:49 IMPRESSION: No acute fractures or dislocations. Reading Location: [facility] X-ray of the right tibia/fibula as interpreted by the emergency medicine physician reveals no sign of acute fracture or dislocation free air or osteomyelitis Discharge Plan Triage Chief Complaint: General Illness ED Provider: Jhonny Landeros Dx/Rx/DC Orders Clinical Impression: Cellulitis of right leg, Hypertension Instructions: Cellulitis Dc Prescriptions: New clindamycin HCl [Cleocin HCl] 300 mg capsule 300 mg PO 4X/DAY 10 Days Qty: 40 0RF No Action hydrocodone-acetaminophen 5-325 mg tablet 1 tab PO Q6H PRN PRN (Reason: Pain) 3 Days Qty: 10 0RF Primary Care Provider: Care Physician,No Primary Referrals: Edil Whitley MD [Med Staff - Active Staff] - Care Physician,No Primary [Primary Care Provider] - Activity Restrictions/Additional Instructions: Your history and exam is concerning/consistent with cellulitis. This is a soft tissue infection. Please take the antibiotic as directed to help resolve this. It would typically take 2 to 3 days for the antibiotic to take effect. If the redness continues to spread despite taking the antibiotic, you notice streaking up the leg, or you develop a persistent fever or feel your symptoms are worsening in any way it could indicate that you may need prolonged IV antibiotics and therefore please return to the ER for repeat evaluation Print Language: Indian Disposition Disposition: Home, Self Care What to do if you have Problems For any increased pain, shortness of breath, bleeding, nausea or vomiting, chestpain, or any unexpected problems, contact your Primary Care Provider. Call [facility] ([phone]) or report to the closest Emergency Room. Call 911 if necessary. 07/01/25 0649 <Electronically signed by Jhonny Landeros DO> Cosigner Signature (if applicable): CC: No Primary Care Physician ~ Signed [facility] Work Phone: Evaluation note Note Date & Type Note Facility Evaluation note No assessment information availa ble [facility] Work Phone: Reason for referral (narrative) Note Date & Type Note Facility Reason for referral (narrative) No reason for referral information available [facility] Work Phone: Summary Purpose Family History No Family History Records FoundNo Family History Records FoundNo Family History Records Found Advance Directives No Advanced Directives Records Found Advance Directive Response Recorded Date/ Time Advance Directives No November 28, 2014 6:59pm Living Will No February 04, 2023 3:08am Power of Seismometer Operator No February 04 3:08am Advance Directive Response Recorded Date/ Time Advance Directives No November 28, 2014 6:59pm Living Will No August 10 12:46am Power of Seismometer Operator No August 10, 2023 12:46am Advance Directive Response Recorded Date/ Time Do you have a Healthcare Power of Seismometer Operator? No April 15, 2025 12:33pm Advance Directives No November 28, 2014 6:59pm Advance Directive Response Recorded Date/ Time Do you have a Healthcare Power of Seismometer Operator? No April 15, 2025 12:33pm Do you have a Healthcare Power of Seismometer Operator? No July 01, 2025 3:18am Advance Directives No November 28, 2014 6:59pm Chief Complaint and Reason for Visit Chief Complaint rash Chief Complaint dental pain Chief Complaint Admit Date DENTAL April 15, 2025 11:5 1am Chief Complaint Admit Date DENTAL April 15, 2025 11:5 1am GENERAL ILLNESS July 01, 2025 3:16am Additional Source Comments (unrecognized sect ion and content) No Status Records FoundNo Status Records FoundNo Status Records Found INFORMATION SOURCE (unrecogn ized section and content) DATE CREATED AUTHOR 09/29/2019 [facility] DATE CREATED AUTHOR AUTHOR'S ORGANADRIÁN ATWILLIAM 03/28/2022 [facility] DATE CREATED AUTHOR AUTHOR'S ORGANIZ ATION 07/08/2025 [facility] Care Teams (unrecognized sec tion and [...] April 15, 2025 End: April 15, 2025 Team Status: Active Member Role/Relationship Status Dates No Primary Care Physician Primary Care Provider Active Team Status: Inactive Member Role/Relationship Status Dates No Primary Care Physician Primary Care Provider Active Start: April 15, 2025 End: April 15, 2025 Dr. Porfirio Perez MD Attending Provider Active Sta rt: April 15, 2025 End: April 15, 2025 Dr. Porfirio Perez MD Emergency Provider Active Sta rt: April 15, 2025 End: April 15, 2025 Team Status: Inactive Member Role/Relationship Status Dates No Primary Care Physician Primary Care Provider Active Start: July 01, 2025 End: July 01, 2025 Dr. Jhonny Landeros , Emergency Provider Active Start: July 01, 2025 End: July 01, 2025 Goals (unrecognized section and content) Goals [...] BE BASED ON THE PRIMARY CLINICAL RECORDS. [facility], [facility]. provides no warranty or guarantee of the accuracy or completeness of information in this document.
[2025-07-28 09:48] VITALS: BP 182/93
--- NOTE | 2025-07-28 09:48 | EDS_ITS ---
HPI History of Present Illness Chief Complaint: Dental Narrative Narrative: Chief complaint and HPI: 55-year-old male with no significant past medical history but does not follow regularly with a physician presents for evaluation of right sided dental pain. Patient states that he has multiple dental caries and broken teeth. States that he has been having intermittent pain in his teeth on the right for several months. Saw the dentist 2 months ago in which he was told that he needs his teeth pulled. 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 Patient states pain worsened several days ago. He denies any fever, chills, nausea, vomiting, chest pain, shortness of breath, difficulty swallowing or breathing. Review of systems: See HPI Medications: As listed on the chart Allergies: As listed on the chart PFSH: Per chart Vital signs: As listed on the chart. Reviewed. Physical exam: Gen: A&O x3, NAD Head: Normocephalic, atraumatic Eyes: No sclera icterus, conjunctiva clear, PERRL, EOMI ENT: TMs clear BL, moist mucous membranes, posterior oropharynx unremarkable, uvula midline, tonsils not enlarged, poor dentition, patient has multiple dental caries/fractured teeth/missing teeth, patient has tenderness to palpation of the gingiva located around the fractured/dental carry tooth of #31. No dental abscess. No sublingual/submandibular swelling. No tongue enlargement. Tolerating secretions. Normal phonation. Neck: Trachea midline, Full ROM, No meningismus, no swelling or lymphadenopathy CV: RRR, no murmurs Resp: Lungs CTA BL, no w/r/c, no stridor Musc: Moves all extremities Skin: Warm Neuro: Alert, oriented, grossly intact Psych: Cooperative, appropriate mood and affect [facility] Medical History (Updated 07/09/25 @ 00:00 by Background Daemon) Tooth infection Cholecystectomy planned Home Medications ?Medication ?Instructions ?Recorded ?Last Taken ?Type hydrocodone-acetaminophen 5-325mg 1 tab PO Q6H PRN PRN Pain 3 days 04/15/25 Unknown Rx 5mg-325mg #10 TABLETS clindamycin HCl 300 mg capsule 300 mg PO 4X/DAY 10 day s #40 caps 07/01/25 Unknown Rx (Cleocin HCl) Allergy/AdvReac Type Severity Reaction Status Date / Time No Known Allergies Allergy Verified 07/01/25 03:18 Surgical History (Updated 07/01/25 @ 03:19 by Orlando Walton) Hx of cholecystectomy Social History Smoking Status: Current every day smoker tobacco type: cigarettes EXAM Physical Exam Const Vital Signs: 07/28/25 09:10 Temperature 97.9 F Temperature Source Oral Pulse Rate 89 Respiratory Rate 18 Blood Pressure 222/103 H Blood Pressure Mean 142 Pulse Ox 98 Oxygen Delivery Method Room Air MDM MDM MDM Narrative Medical decision making narrative: 55-year-old male with no significant past medical history but does not follow regularly with a physician presents for evaluation of right sided dental pain. Patient states that he has multiple dental caries and broken teeth. States that he has been having intermittent pain in his teeth on the right for several months. Saw the dentist 2 months ago in which he was told that he needs his teeth pulled. 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 Patient states pain worsened several days ago. He denies any fever, chills, nausea, vomiting, chest pain, shortness of breath, difficulty swallowing or breathing. On presentation, patient noted she is distress. Vitals are unremarkable without fever except for hypertension. Patient originally had SBP in the 200s, repeat show SBP in the 180s. Patient states he has a remote history of hypertension but does not take any medication for it. He does not know his baseline blood pressure. He is asymptomatic from the hypertension. Hypertension may be secondary to untreated essential hypertension versus hypertension from pain. He declined hypertensive workup or treatment of his hypertension. He states he thinks it is elevated secondary to pain. He was offered pain medicine but declined. Given that patient declined workup as well as treatment. I recommend he check his blood pressure at home and monitor it closely. Follow-up with primary care physician. He confirmed understanding. See physical exam findings. No obvious dental abscess for incision and drainage. No Jose angina. Suspect dental infection. Patient will be placed on Augmentin. First dose given here. Recommend Tylenol and ibuprofen as needed for pain. Ice as needed for swelling if it develops. Follow-up with dentist. He confirmed understand the plan. Patient stable to discharge home. On chart review, patient was seen in March for the same complaint. Impression: 1. Dental infection 2. Asymptomatic hypertension, unspecified Discharge Plan Triage Chief Complaint: Dental ED Provider: Pedro Skinner Dx/Rx/DC Orders Prescriptions: No Action hydrocodone-acetaminophen 5-325 mg tablet 1 tab PO Q6H PRN PRN (Reason: Pain) 3 Days Qty: 10 0RF clindamycin HCl [Cleocin HCl] 300 mg capsule 300 mg PO 4X/DAY 10 Days Qty: 40 0RF Primary Care Provider: Care Physician,No Primary Referrals: Care Physician,No Primary [Primary Care Provider, Medical] Print Language: Luxembourgish
[2025-07-28 10:02] VITALS: BP 182/93; PULSE 89; RESP 18; TEMP 36.7; O2SAT 98
--- NOTE | 2025-07-28 10:06 | CM.ED ---
Social Work Date of referral: 07/28/2025 Reason for referral: No primary care physician (PCP) on file. Referred by: Social Work Identification Patient provided consent to social work visit. Assessment Nurse Practitioner provided patient with written information for the [facility] which patient accepted and expressed appreciation for. ANTWAN Chilel. ELECTROMECH[employer]ICAL TECHNOLOGIST
== END 2025-07-28 10:08 | disposition home or self-care (01) ==
PROVIDERS: Emergency Provider Surgery; Visit Provider Surgery
DX: K04.7 Periapical abscess without sinus (principal); K02.9 Dental caries, unspecified; S02.5XXA Fracture of tooth (traumatic), initial encounter for closed fracture; I10 Essential (primary) hypertension; F17.210 Nicotine dependence, cigarettes, uncomplicated
CPT/HCPCS: 99282